=== PATIENT | female | born 1955 | race African-American/Black ===

== ENCOUNTER 2017-05-31 15:21 | Inpatient (IN) | payer OTHER ==
[2017-05-31 18:24] VITALS: BMI 26.6
--- NOTE | 2017-05-31 19:55 | HP ---
CIWA Score - CIWA Score Nausea/Vomitin-Mild Nausea/No Vomiting Muscle Tremors: 4-Moderate,w/Arms Extend Anxiety: 4-Mod. Anxious/Guarded Agitation: 4-Moderately Restless Paroxysmal Sweats: 1-Minimal Palms Moist Orientation: 0-Oriented Tacttile Disturbances: 0-None Auditory Disturbances: 0-None Visual Disturbances: 0-None Headache: 0-None Present CIWA-Ar Total Score: 14 Admission ROS BHS - HPI Chief Complaint: WITHDRAWAL SX Allergies/Adverse Reactions: Allergies Allergy/AdvReac Type Severity Reaction Status Date / Time No Known Allergies Allergy Verified 05/31/17 18:54 History of Present Illness: 61 YEAS OLD FEMALE WITH LONG HISTORY OF ALCOHOL MARIJUANA NICOTINE DEPENDENCE, HAS DIABETES II AND DEPRESSION IS ADMITTED TO DETOX Exam Limitations: No Limitations - Ebola screening Have you traveled outside of the country in the last 21 days: No Have you had contact with anyone from an Ebola affected area: No Have you been sick,other than usual withdrawal symptoms: No Do you have a fever: No - Review of Systems Constitutional: Changes in sleep, Weight Stable EENT: reports: Dental Problems (UPPER TEETH MISSING) Respiratory: reports: SOB with Exertion, Productive cough (WHITE) Cardiac: reports: No Symptoms Reported GI: reports: Nausea, Poor Fluid Intake, Abdominal cramping : reports: No Symptoms Reported Musculoskeletal: reports: Back Pain, Joint Pain (LEFT FOOT) Integumentary: reports: Dryness Neuro: reports: Tremors Endocrine: reports: No Symptoms Reported Hematology: reports: No Symptoms Reported Psychiatric: reports: Judgement Intact, Orientated x3, Anxious, Depressed Other Systems: Reviewed and Negative Patient History - Patient Medical History Hx Anemia: No Hx Asthma: No Hx Chronic Obstructive Pulmonary Disease (COPD): Yes Hx Cancer: No Hx Cardiac Disorders: Yes Hx Congestive Heart Failure: No Hx Hypertension: Yes (on meds) Hx Hypercholesterolemia: Yes Hx Pacemaker: No HX Cerebrovascular Accident: Yes (2011 LEFT LEG) Hx Seizures: No Hx Dementia: No Hx Diabetes: Yes Hx Gastrointestinal Disorders: No Hx Liver Disease: No Hx Genitourinary Disorders: No Hx Sexually Transmitted Disorders: No Hx Renal Disease (ESRD): No Hx Thyroid Disease: No Hx Human Immunodeficiency Virus (HIV): No Hx Hepatitis C: Yes Hx Depression: Yes Hx Suicide Attempt: No Hx Bipolar Disorder: No Hx Schizophrenia: No - Patient Surgical History Past Surgical History: No Hx Neurologic Surgery: No Hx Cataract Extraction: No Hx Cardiac Surgery: No Hx Lung Surgery: No Hx Breast Surgery: No Hx Breast Biopsy: No Hx Abdominal Surgery: No Hx Appendectomy: No Hx Cholecystectomy: No Hx Genitourinary Surgery: No Hx Section: No Hx Orthopedic Surgery: No Hx Hysterectomy: No Other Surgical History: s/p stent insertion L leg.2012 Anesthesia Reaction: No - PPD History Previous Implant?: Yes Documented Results: Negative w/proof Implanted On Prior [facility] Admission?: Yes Date: 11/27/14 PPD to be Administered?: Yes - Reproductive History Patient is a Female of Child Bearing Age (11 -55 yrs old): No Last Menstrual Period: 03/27/06 Patient : No - Smoking Cessation Smoking history: Current every day smoker Have you smoked in the past 12 months: Yes Aproximately how many cigarettes per day: 8 Cigars Per Day: 0 Hx Chewing Tobacco Use: No Initiated information on smoking cessation: Yes 'Breaking Loose' booklet given: 05/31/17 - Substance & Tx. History Hx Alcohol Use: Yes Hx Substance Use: Yes Substance Use Type: Alcohol, Marijuana Hx Substance Use Treatment: Yes (2014 [facility] - Substances Abused Alcohol Route: Oral Frequency: Daily Amount used: 2 SIX PACKS/16OZ Age of first use: 50 Date of Last Use: 05/31/17 Family Disease History - Family Disease History Family Disease History: Diabetes: Brother, Sister (), [place]: Father ( alcohol/), Sister, Other: Mother (MS, etoh/), Sister Admission Physical Exam [facility] - Vital Signs Vital Signs: Vital Signs - 24 hr 05/31/17 18:21 Temperature 98.1 F Pulse Rate 93 H Respiratory 18 Rate Blood Pressure 113/70 - Physical General Appearance: Yes: Appropriately Dressed, Mild Distress, Alcohol on Breath , Tremorous, Irritable, Sweating, Anxious HEENTM: Yes: Hearing grossly Normal, Normal ENT Inspection, Normocephalic, Normal Voice Respiratory: Yes: Chest Non-Tender, Lungs Clear, Normal Breath Sounds, No Respiratory Distress, No Accessory Muscle Use Neck: Yes: Supple, Trachea in good position Breast: Yes: Breasts Symetrical Cardiology: Yes: Regular Rhythm, S1, S2, Tachycardia Abdominal: Yes: Non Tender, Soft, Increased Bowel Sounds Genitourinary: Yes: Within Normal Limits Back: Yes: Normal Inspection Musculoskeletal: Yes: full range of Motion, Gait Steady Extremities: Yes: Normal Inspection, Normal Range of Motion, Non-Tender, Tremors Neurological: Yes: Fully Oriented, Alert, Motor Strength 5/5, Normal Response, Depressed Affect Integumentary: Yes: Warm Lymphatic: Yes: Within Normal Limits - Diagnostic (1) COPD (chronic obstructive pulmonary disease) Current Visit: Yes Status: Chronic Qualifiers: COPD type: emphysema Emphysema type: unilateral Qualified Code(s ): J43.0 - Unilateral pulmonary emphysema [MacLeod's syndrome] Comment: on meds, sees primary (2) Hypertension Current Visit: Yes Status: Chronic Qualifiers: Hypertension type: essential hypertension Qualified Code(s): I10 - Essential (primary) hypertension Comment: on meds, sees primary (3) Nicotine dependence Current Visit: Yes Status: Acute Qualifiers: Nicotine product type: cigarettes Substance use status: in withdrawal Qualified Code(s): F17.213 - Nicotine dependence, cigarettes, with withdrawal Comment: counseled cessation - has inhaler but did not like, has patches - not ready to try (4) PVD (peripheral vascular disease) Current Visit: Yes Status: Resolved Comment: has stent - saw vascular 2/5 and has another test to do end of month - states LLE feels better (5) Alcohol dependence with uncomplicated withdrawal Current Visit: Yes Status: Acute (6) Depression Current Visit: Yes Status: Suspected Qualifiers: Depression Type: dysthymia Qualified Code(s): F34.1 - Dysthymic disorder (7) Diabetes mellitus type II, controlled Current Visit: Yes Status: Chronic Qualifiers: Diabetes mellitus complication status: with neurologic complications Diabetes mellitus complication detail: with mononeuropathy Diabetes mellitus senior living insulin use: without adjunct faculty for medical terminology use Qualified Code(s): E11.41 - Type 2 diabetes mellitus with diabetic mononeuropathy (8) Use of cane as ambulatory aid Current Visit: Yes Status: Chronic (9) Status post stroke Current Visit: Yes Status: Chronic Comment: LEFT LEG WEAKNESS (10) Hepatitis C carrier Current Visit: Yes Status: Resolved Cleared for Admission BHS - Detox or Rehab BHS Level of Care: Medically Managed Detox Regimen/Protocol: Librium BHS Breath Alcohol Content Breath Alcohol Content: 0.020 Urine Pregancy Test - Result Urine Test Results: Negative- NO Line Present Urine Drug Screen - Results Drug Screen Negative: No Urine Drug Screen Results: THC-Marijuana
[2017-05-31] MEDS ORDERED: MAG HYDROX/AL HYDROX/SIMETH 30 ML UNIT-DOSE CUP PO PRN (20:04)
[2017-05-31] MEDS ORDERED: ACETAMINOPHEN 325 MG TABLET (FP) PO PRN (20:04)
[2017-05-31] MEDS ORDERED: guaiFENesin/D-METHORPHAN HB 10 ML UNIT-DOSE CUPS PO PRN (20:04)
[2017-05-31] MEDS ORDERED: diphenhydrAMINE HCL 50 MG CAPSULE PO PRN (20:04)
[2017-05-31] MEDS ORDERED: MENTHOL/PHENOL 1 EACH UD MM PRN (20:04)
[2017-05-31] MEDS ORDERED: chlordiazePOXIDE HCL 25 MG CAPSULE PO PRN (20:04)
[2017-05-31] MEDS ORDERED: MAGNESIUM CITRATE 300 ML BOTTLE PO PRN (20:04)
[2017-05-31] MEDS ORDERED: P-EPHED 60MG/TRIPROLIDI 2.5MG TABLET PO PRN (20:04)
[2017-05-31] MEDS ORDERED: LOPERAMIDE HCL 2 MG CAPSULE PO PRN (20:04)
[2017-05-31] MEDS ORDERED: chlordiazePOXIDE HCL 25 MG CAPSULE PO ONE (20:04)
[2017-05-31] MEDS ORDERED: MAGNESIUM HYDROX 2400MG/30ML ORAL SUSPENSION 30 ML CUP PO PRN (20:04)
[2017-05-31] MEDS ORDERED: ALBUTEROL SO4 18 GM HFA INHALER IH PRN (20:36)
[2017-05-31] MEDS: BUDESONIDE/FORMETEROL FUMARATE 80/4.5 mcg INHALER IH SCH (22:10)
[2017-05-31] MEDS: THIAMINE HCL 100 MG TABLET (FP) PO SCH (22:11)
[2017-05-31] MEDS: chlordiazePOXIDE HCL 25 MG CAPSULE PO SCH (22:11)
[2017-05-31] MEDS: ATORVASTATIN CA 40 MG TABLET (FP) PO SCH (22:11)
[2017-05-31] MEDS: AMMONIUM LACTATE 12% LOTION 225 GM BOTTLE TP SCH (22:11)
[2017-05-31] MEDS: INSULIN SLIDING SCALE (NOVOLOG) 1 VIAL SQ SCH (22:12)
[2017-05-31 23:40] LABS: URINE APPEARANCE SLCLOUDY; URINE BILIRUBIN NEGATIVE (NEGATIVE); URINE BLOOD 1+ (NEGATIVE); URINE COLOR YELLOW; URINE GLUCOSE (UA) NEGATIVE (NEGATIVE); URINE KETONE NEGATIVE (NEGATIVE); URINE LEUK ESTERASE NEGATIVE (NEGATIVE); URINE NITRITE POSITIVE (NEGATIVE); URINE PROTEIN NEGATIVE (NEGATIVE); URINE UROBILINOGEN NEGATIVE mg/dL (0.2-1.0)
[2017-06-01 00:02] LABS: GRANULAR CASTS 1 /lpf; URINE BACTERIA RARE /hpf (NONE SEEN); URINE HYALINE CAST 6 /lpf; URINE MUCUS RARE; URINE RBC <1 /hpf (0-3); URINE WBC 2 /hpf (3-5)
[2017-06-01] MEDS: chlordiazePOXIDE HCL 25 MG CAPSULE PO SCH ×4 (06:01→22:25)
[2017-06-01] MEDS: NICOTINE POLACRILEX 2 MG GUM BC PRN ×3 (06:03→17:13)
[2017-06-01] MEDS: INSULIN SLIDING SCALE (NOVOLOG) 1 VIAL SQ SCH ×4 (08:10→23:43)
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
--- NOTE | 2017-06-01 08:57 | PN ---
S CIWA - CIWA Score Nausea/Vomitin Muscle Tremors: 4-Moderate,w/Arms Extend Anxiety: 4-Mod. Anxious/Guarded Agitation: 4-Moderately Restless Paroxysmal Sweats: 3 Orientation: 0-Oriented Tacttile Disturbances: 1-Very Mild Itch/Numbness Auditory Disturbances: 0-None Visual Disturbances: 0-None Headache: 1-Very Mild CIWA-Ar Total Score: 20 BHS Progress Note (SOAP) Subjective: nausea, sweats, interrupted sleep, anxiety, tremors, patient may have cane for ambualtion order placed at nurses request Objective: 06/01/17 08:56 Vital Signs - 8 hr 06/01/17 06/01/17 03:30 07:14 Temperature 98.1 F Pulse Rate 88 Respiratory 18 18 Rate Blood Pressure 132/77 Laboratory Tests 05/31/17 05/31/17 05/31/17 15:44 18:58 21:45 POC Glucometer 135 129 Urine Color Yellow Urine Appearance Slcloudy Urine pH 5.0 Urine Protein Negative Urine Glucose (UA) Negative Urine Ketones Negative Urine Blood 1+ H Urine Nitrite Positive Urine Bilirubin Negative Urine Urobilinogen Negative Urine RBC <1 Urine WBC 2 Ur Epithelial Cells Rare Urine Bacteria Rare Hyaline Casts 6 Granular Casts 1 Urine Mucus Rare 06/01/17 06:00 POC Glucometer 117 Urine Color Urine Appearance Urine pH Urine Protein Urine Glucose (UA) Urine Ketones Urine Blood Urine Nitrite Urine Bilirubin Urine Urobilinogen Urine RBC Urine WBC Ur Epithelial Cells Urine Bacteria Hyaline Casts Granular Casts Urine Mucus labs stiull pending Assessment: 06/01/17 08:57 withdrawal sx Plan: cont detox.
--- NOTE | 2017-06-01 09:22 | EKG ---
Test Reason : Blood Pressure : / mmHG Vent. Rate : 073 BPM Atrial Rate : 073 BPM P-R Int : 236 ms QRS Dur : 094 ms QT Int : 406 ms P-R-T Axes : 074 -20 063 degrees QTc Int : 447 ms SINUS RHYTHM WITH 1ST DEGREE A-V BLOCK POSSIBLE LEFT ATRIAL ENLARGEMENT INCOMPLETE RIGHT BUNDLE BRANCH BLOCK NO PREVIOUS ECGS AVAILABLE Confirmed by PARUL MOYER MD ([id number]) on 06/01/2017 9:21:40 AM Referred By: Confirmed By:PARUL MOYER MD
[2017-06-01] MEDS ORDERED: ERGOCALCIFEROL (VITAMIN D2) 50,000 UNIT CAPSULE (FP) PO SCH (10:00)
[2017-06-01 10:24] LABS: MCH 30.7 pg (25.7-33.7); MEAN CELL VOLUME 90.5 fl (80-96); MEAN PLT VOLUME 9.3 fl (7.5-11.1); PLATELET COUNT 265 K/MM3 (134-434); RDW 13.7 % (11.6-15.6); WHITE BLOOD COUNT 6.7 K/mm3 (4.0-10.0)
[2017-06-01] MEDS: CARVEDILOL 12.5 MG TABLET (FP) PO SCH (10:31)
[2017-06-01] MEDS: CLOPIDOGREL BISULFATE 75 MG TABLET (FP) PO SCH (10:33)
[2017-06-01] MEDS: LOSARTAN POTASSIUM 50 MG TABLET (FP) PO SCH (10:33)
[2017-06-01] MEDS: PRENATAL VITAMINS W/ FOLIC ACID TABLET (FP) PO SCH (10:33)
[2017-06-01] MEDS: NICOTINE 14 MG/24 HOURS TOPICAL PATCH TD SCH (10:34)
[2017-06-01] MEDS: BUDESONIDE/FORMETEROL FUMARATE 80/4.5 mcg INHALER IH SCH ×2 (10:34→23:43)
[2017-06-01 11:42] LABS: ALBUMIN 3.5 g/dl (3.4-5.0); ALK PHOS 67 U/L (45-117); ANION GAP 10 (8-16); BILIRUBIN,TOTAL 0.4 mg/dL (0.2-1.0); CO2 28 mmol/L (21-32); CREATININE 0.7 mg/dL (0.55-1.02); GLUCOSE,RANDOM 98 mg/dL (74-106); SGOT/AST 12 U/L (15-37); SGPT/ALT 18 U/L (12-78); TOT PROT 7.6 g/dl (6.4-8.2)
[2017-06-01] MEDS: AMMONIUM LACTATE 12% LOTION 225 GM BOTTLE TP SCH ×2 (11:48→22:25)
[2017-06-01] MEDS: ZOLPIDEM TARTRATE 10 MG TABLET (PARK CARE ONLY) PO PRN (22:25)
[2017-06-01] MEDS: THIAMINE HCL 100 MG TABLET (FP) PO SCH (22:25)
[2017-06-01] MEDS: ATORVASTATIN CA 40 MG TABLET (FP) PO SCH (22:25)
[2017-06-02] MEDS: chlordiazePOXIDE HCL 25 MG CAPSULE PO SCH ×3 (05:53→16:59)
[2017-06-02] MEDS: INSULIN SLIDING SCALE (NOVOLOG) 1 VIAL SQ SCH ×4 (07:52→21:33)
[2017-06-02] MEDS: BUDESONIDE/FORMETEROL FUMARATE 80/4.5 mcg INHALER IH SCH ×2 (10:36→21:55)
[2017-06-02] MEDS: CARVEDILOL 12.5 MG TABLET (FP) PO SCH (10:37)
[2017-06-02] MEDS: NICOTINE 14 MG/24 HOURS TOPICAL PATCH TD SCH (10:37)
[2017-06-02] MEDS: LOSARTAN POTASSIUM 50 MG TABLET (FP) PO SCH (10:37)
[2017-06-02] MEDS: CLOPIDOGREL BISULFATE 75 MG TABLET (FP) PO SCH (10:37)
[2017-06-02] MEDS: PRENATAL VITAMINS W/ FOLIC ACID TABLET (FP) PO SCH (10:37)
[2017-06-02] MEDS: AMMONIUM LACTATE 12% LOTION 225 GM BOTTLE TP SCH ×2 (10:38→22:02)
--- NOTE | 2017-06-02 14:09 | PN ---
S CIWA - CIWA Score Nausea/Vomitin Muscle Tremors: 3 Anxiety: 3 Agitation: 3 Paroxysmal Sweats: 1-Minimal Palms Moist Orientation: 0-Oriented Tacttile Disturbances: 1-Very Mild Itch/Numbness Auditory Disturbances: 1-Very Mild Visual Disturbances: 1-Very Mild Sensitivity Headache: 2-Mild CIWA-Ar Total Score: 18 BHS Progress Note (SOAP) Subjective: alert,irritable,anxious,interrupted sleep,tremor,pain in the body,hsitory of rheumatiod arthritis on plaquenil 200 mgs po daily Objective: 06/02/17 14:06 Vital Signs Temperature 98.2 F 06/02/17 11:08 Pulse Rate 81 06/02/17 11:08 Respiratory Rate 18 06/02/17 11:08 Blood Pressure 135/70 06/02/17 11:08 O2 Sat by Pulse Oximetry (%) ekg nsr with 1st degree av block 73/min no chest pain,no sob,no dizziness Laboratory Last Values WBC 6.7 K/mm3 (4.0-10.0) 06/01/17 07:40 RBC 4.24 M/mm3 (3.60-5.2) 06/01/17 07:40 Hgb 13.0 GM/dL (10.7-15.3) 06/01/17 07:40 Hct 38.3 % (32.4-45.2) 06/01/17 07:40 MCV 90.5 fl (80-96) 06/01/17 07:40 MCH 30.7 pg (25.7-33.7) 06/01/17 07:40 MCHC 34.0 g/dl (32.0-36.0) 06/01/17 07:40 RDW 13.7 % (11.6-15.6) 06/01/17 07:40 Plt Count 265 K/MM3 (134-434) 06/01/17 07:40 MPV 9.3 fl (7.5-11.1) 06/01/17 07:40 Sodium 136 mmol/L (136-145) 06/01/17 07:40 Potassium 3.6 mmol/L (3.5-5.1) 06/01/17 07:40 Chloride 98 mmol/L (98-107) 06/01/17 07:40 Carbon Dioxide 28 mmol/L (21-32) 06/01/17 07:40 Anion Gap 10 (8-16) 06/01/17 07:40 BUN 11 mg/dL (7-18) 06/01/17 07:40 Creatinine 0.7 mg/dL (0.55-1.02) 06/01/17 07:40 Creat Clearance w eGFR > 60 (>60) 06/01/17 07:40 POC Glucometer 122 UNITS (()) 06/02/17 11:16 Random Glucose 98 mg/dL (74-106) 06/01/17 07:40 Calcium 10.0 mg/dL (8.5-10.1) 06/01/17 07:40 Total Bilirubin 0.4 mg/dL (0.2-1.0) D 06/01/17 07:40 AST 12 U/L (15-37) L 06/01/17 07:40 ALT 18 U/L (12-78) D 06/01/17 07:40 Alkaline Phosphatase 67 U/L (45-117) 06/01/17 07:40 Total Protein 7.6 g/dl (6.4-8.2) 06/01/17 07:40 Albumin 3.5 g/dl (3.4-5.0) 06/01/17 07:40 Urine Color Yellow 05/31/17 15:44 Urine Appearance Slcloudy 05/31/17 15:44 Urine pH 5.0 (5.0-8.0) 05/31/17 15:44 Ur Specific Mcwilliams 1.025 (1.005-1.025) 05/31/17 15:44 Urine Protein Negative (NEGATIVE) 05/31/17 15:44 Urine Glucose (UA) Negative (NEGATIVE) 05/31/17 15:44 Urine Ketones Negative (NEGATIVE) 05/31/17 15:44 Urine Blood 1+ (NEGATIVE) H 05/31/17 15:44 Urine Nitrite Positive (NEGATIVE) 05/31/17 15:44 Urine Bilirubin Negative (NEGATIVE) 05/31/17 15:44 Urine Urobilinogen Negative mg/dL (0.2-1.0) 05/31/17 15:44 Urine RBC <1 /hpf (0-3) 05/31/17 15:44 Urine WBC 2 /hpf (3-5) 05/31/17 15:44 Ur Epithelial Cells Rare /hpf (FEW) 05/31/17 15:44 Urine Bacteria Rare /hpf (NONE SEEN) 05/31/17 15:44 Hyaline Casts 6 /lpf 05/31/17 15:44 Granular Casts 1 /lpf 05/31/17 15:44 Urine Mucus Rare 05/31/17 15:44 RPR Titer Nonreactive (NONREACTIVE) 06/01/17 07:40 06/02/17 14:08 Assessment: 06/02/17 14:08 withdrawal symptom Plan: continue detox,bgm monitoring
[2017-06-02] MEDS: HYDROCHLOROTHIAZIDE 25 MG TABLET (FP) PO SCH (14:38)
[2017-06-02] MEDS: HYDROXYCHLOROQUINE SO4 200 MG TABLET (FP) PO SCH (14:38)
[2017-06-02] MEDS: ATORVASTATIN CA 40 MG TABLET (FP) PO SCH (21:56)
[2017-06-02] MEDS: ZOLPIDEM TARTRATE 10 MG TABLET (PARK CARE ONLY) PO PRN (21:56)
[2017-06-02] MEDS: THIAMINE HCL 100 MG TABLET (FP) PO SCH (21:56)
[2017-06-02] MEDS: IBUPROFEN 400 MG TABLET (FP) PO PRN (21:57)
[2017-06-02] MEDS: hydrOXYzine PAMOATE 50 MG CAPSULE (FP) PO PRN (22:00)
[2017-06-02] MEDS: chlordiazePOXIDE 5 MG CAPSULE PO SCH (22:01)
--- NOTE | 2017-06-03 05:08 | PN ---
S Progress Note Note: ASKED TO SEE PT FOR AN UNWITNESSED FALL. CLIENT REPORT LOSING HER BALANCE WHILE GOING TO THE BATHROOM. NURSE REPORTS FINDING HER LYING ON HER LEFT SIDE. DENIES ANY HEAD TRAUMA, LOC, C.P., SOB SEEN LYING IN BED ALERT NAD NO VISIBLE INJURY EXTREMITIES FROM X4 WITHOUT LIMITATION Vital Signs 06/03/17 06/03/17 06/03/17 00:30 03:30 05:17 Temperature 97.4 F L Pulse Rate 67 Respiratory 18 18 18 Rate Blood Pressure 166/79 06/03/17 06:00 Temperature 98.1 F Pulse Rate 61 Respiratory 18 Rate Blood Pressure 129/74 BGM 93 S/P UNWITNESSED FALL FALL PROTOCOL 2 FALL PRECAUTION MOTRIN/TYLENOL FOR PAIN CLIENT DECLINES XRAY OF L HIP AT THIS TIME
[2017-06-03] MEDS: chlordiazePOXIDE 5 MG CAPSULE PO SCH ×3 (06:49→17:36)
[2017-06-03] MEDS: IBUPROFEN 400 MG TABLET (FP) PO PRN (07:50)
[2017-06-03] MEDS: INSULIN SLIDING SCALE (NOVOLOG) 1 VIAL SQ SCH ×4 (07:56→21:16)
--- NOTE | 2017-06-03 10:17 | PN ---
S Progress Note (SOAP) Subjective: ALERT,IRRITABLE,INTERRUPTED SLEEP Objective: 06/03/17 10:16 Vital Signs Temperature 98.6 F 06/03/17 10:00 Pulse Rate 75 06/03/17 10:00 Respiratory Rate 18 06/03/17 10:00 Blood Pressure 136/70 06/03/17 10:00 O2 Sat by Pulse Oximetry (%) Assessment: 06/03/17 10:16 WITHDRAWAL SYMPTOM Plan: CONTINUE DETOX,DISCHARGE IN AM
[2017-06-03] MEDS: BUDESONIDE/FORMETEROL FUMARATE 80/4.5 mcg INHALER IH SCH ×2 (11:36→21:26)
[2017-06-03] MEDS: PRENATAL VITAMINS W/ FOLIC ACID TABLET (FP) PO SCH (11:36)
[2017-06-03] MEDS: CLOPIDOGREL BISULFATE 75 MG TABLET (FP) PO SCH (11:36)
[2017-06-03] MEDS: HYDROCHLOROTHIAZIDE 25 MG TABLET (FP) PO SCH (11:37)
[2017-06-03] MEDS: CARVEDILOL 12.5 MG TABLET (FP) PO SCH (11:37)
[2017-06-03] MEDS: LOSARTAN POTASSIUM 50 MG TABLET (FP) PO SCH (11:37)
[2017-06-03] MEDS ORDERED: INSULIN (NOVOLOG) ASPART 100 UNITS/ML 10ML VIAL ONE (11:50)
[2017-06-03] MEDS: AMMONIUM LACTATE 12% LOTION 225 GM BOTTLE TP SCH ×2 (11:58→21:17)
[2017-06-03] MEDS: NICOTINE 14 MG/24 HOURS TOPICAL PATCH TD SCH (12:01)
[2017-06-03] MEDS: HYDROXYCHLOROQUINE SO4 200 MG TABLET (FP) PO SCH (12:01)
[2017-06-03] MEDS: THIAMINE HCL 100 MG TABLET (FP) PO SCH (21:15)
[2017-06-03] MEDS: ATORVASTATIN CA 40 MG TABLET (FP) PO SCH (21:16)
[2017-06-03] MEDS: ZOLPIDEM TARTRATE 10 MG TABLET (PARK CARE ONLY) PO PRN (21:17)
[2017-06-03] MEDS: hydrOXYzine PAMOATE 50 MG CAPSULE (FP) PO PRN (21:19)
[2017-06-03] MEDS: chlordiazePOXIDE HCL 10 MG CAPSULE PO SCH (21:59)
[2017-06-04] MEDS: chlordiazePOXIDE HCL 10 MG CAPSULE PO SCH (05:38)
[2017-06-04] MEDS: INSULIN SLIDING SCALE (NOVOLOG) 1 VIAL SQ SCH (07:33)
--- NOTE | 2017-06-04 09:01 | DS ---
[facility] Detox Discharge Summary Admission Date: 05/31/17 Discharge Date: 06/04/17 - History Present History: Alcohol Dependence, Cannabis Dependence - Physical Exam Results Vital Signs: Vital Signs Temperature 97.3 F L 06/04/17 06:03 Pulse Rate 69 06/04/17 06:03 Respiratory Rate 18 06/04/17 06:03 Blood Pressure 106/58 06/04/17 06:03 O2 Sat by Pulse Oximetry (%) - Treatment Hospital Course: Detox Protocol Followed, Detoxed Safely, Responded well, Discharged Condition Good, Rehab Referral Accepted - Medication Discharge Medications: Ambulatory Orders Chlorthalidone 25 mg PO DAILY 07/07/14 Metformin HCl 850 mg PO DAILY 07/07/14 Gabapentin [Neurontin] 600 mg PO TID 11/25/14 Atorvastatin Ca [Lipitor] 40 mg PO HS #30 tablet 12/14/14 Carvedilol 12.5 mg PO BID #60 tablet 12/14/14 Clopidogrel Bisulfate [Plavix -] 75 mg PO DAILY #30 tablet 12/14/14 Hydroxyzine Pamoate [Vistaril -] 50 mg PO HS PRN #30 capsule 12/15/14 Ergocalciferol [Drisdol -] 50,000 unit PO Q7D@1000 02/17/15 Quetiapine Fumarate [Seroquel -] 50 mg PO HS 02/17/15 - Diagnosis (1) Alcohol dependence with uncomplicated withdrawal Current Visit: Yes Status: Chronic (2) COPD (chronic obstructive pulmonary disease) Current Visit: Yes Status: Chronic Qualifiers: COPD type: emphysema Emphysema type: unilateral Qualified Code(s ): J43.0 - Unilateral pulmonary emphysema [MacLeod's syndrome] (3) Diabetes mellitus type II, controlled Current Visit: Yes Status: Chronic Qualifiers: Diabetes mellitus complication status: with neurologic complications Diabetes mellitus complication detail: with mononeuropathy Diabetes mellitus roasterman insulin use: without roasterman use Qualified Code(s): E11.41 - Type 2 diabetes mellitus with diabetic mononeuropathy; Z79.4 - long term care phlebotomist (current) use of insulin (4) Hypertension Current Visit: Yes Status: Chronic Qualifiers: Hypertension type: essential hypertension Qualified Code(s): I10 - Essential (primary) hypertension (5) Nicotine dependence Current Visit: Yes Status: Chronic Qualifiers: Nicotine product type: cigarettes Substance use status: uncomplicated Qualified Code(s): F17.210 - Nicotine dependence, cigarettes, uncomplicated (6) Rheumatoid arthritis Current Visit: Yes Status: Chronic Qualifiers: Rheumatoid arthritis location: unspecified site (7) Schizoaffective disorder Current Visit: Yes Status: Chronic (8) Status post stroke Current Visit: No Status: Resolved (9) Use of cane as ambulatory aid Current Visit: Yes Status: Chronic (10) Depression Current Visit: Yes Status: Suspected Qualifiers: Depression Type: dysthymia Qualified Code(s): F34.1 - Dysthymic disorder (11) Hepatitis C carrier Current Visit: Yes Status: Resolved (12) PVD (peripheral vascular disease) Current Visit: Yes Status: Resolved (13) Cannabis abuse Current Visit: No Status: Chronic (14) Chronic use of opiate for therapeutic purpose Current Visit: No Status: Chronic (15) Left hip pain Current Visit: No Status: Chronic (16) Low back pain Current Visit: No Status: Chronic (17) Schizophrenia, paranoid type Current Visit: No Status: Chronic - AMA Did Patient Leave Against Medical Advice: No
[2017-06-04] MEDS: LOSARTAN POTASSIUM 50 MG TABLET (FP) PO SCH (09:17)
[2017-06-04] MEDS: PRENATAL VITAMINS W/ FOLIC ACID TABLET (FP) PO SCH (09:17)
[2017-06-04] MEDS: CLOPIDOGREL BISULFATE 75 MG TABLET (FP) PO SCH (09:17)
[2017-06-04] MEDS: AMMONIUM LACTATE 12% LOTION 225 GM BOTTLE TP SCH (09:17)
[2017-06-04] MEDS: CARVEDILOL 12.5 MG TABLET (FP) PO SCH (09:17)
[2017-06-04] MEDS: BUDESONIDE/FORMETEROL FUMARATE 80/4.5 mcg INHALER IH SCH (09:19)
[2017-06-04] MEDS: HYDROXYCHLOROQUINE SO4 200 MG TABLET (FP) PO SCH (09:19)
[2017-06-04] MEDS: NICOTINE 14 MG/24 HOURS TOPICAL PATCH TD SCH (09:23)
[2017-06-04] MEDS: HYDROCHLOROTHIAZIDE 25 MG TABLET (FP) PO SCH (09:52)
[2017-06-04] MEDS ORDERED: ERGOCALCIFEROL (VITAMIN D2) 50,000 UNIT CAPSULE (FP) PO SCH (10:00)
[2017-06-04 10:40] VITALS: BP 100/89; PULSE 79; TEMP 98.1
== END 2017-06-04 09:55 | disposition home or self-care (01) | DRG 775 ==
LOC: YASAS 15:21 → Y6N 19:21
PROVIDERS: ADMIT Internal Medicine; ATTEND Internal Medicine
PROC: HZ2ZZZZ Detoxification Services for Substance Abuse Treatment (ICD-10-PCS; principal; 2017-05-31)
DX: F10.230 Alcohol dependence with withdrawal, uncomplicated (principal); F12.20 Cannabis dependence, uncomplicated; F17.210 Nicotine dependence, cigarettes, uncomplicated; F25.9 Schizoaffective disorder, unspecified; F34.1 Dysthymic disorder; F20.0 Paranoid schizophrenia; J43.0 Unilateral pulmonary emphysema [MacLeod's syndrome]; E78.5 Hyperlipidemia, unspecified; E11.41 Type 2 diabetes mellitus with diabetic mononeuropathy; I10 Essential (primary) hypertension; M06.9 Rheumatoid arthritis, unspecified; I44.0 Atrioventricular block, first degree; Z86.73 Personal history of transient ischemic attack (TIA), and cerebral infarction without residual deficits; R26.2 Difficulty in walking, not elsewhere classified; Z99.89 Dependence on other enabling machines and devices; B18.2 Chronic viral hepatitis C; I73.9 Peripheral vascular disease, unspecified; Z79.4 Long term (current) use of insulin; R00.0 Tachycardia, unspecified; M54.5 Low back pain; M25.552 Pain in left hip; Z79.84 Long term (current) use of oral hypoglycemic drugs; W18.39XA Other fall on same level, initial encounter; Y93.89 Activity, other specified; Y92.230 Patient room in hospital as the place of occurrence of the external cause
CPT/HCPCS: 36415; 80053; 81003; 81015; 85027; 86593; 93005; 93010

== ENCOUNTER 2017-12-07 11:18 | Inpatient (IN) | payer OTHER ==
[2017-12-07 11:29] VITALS: BMI 24.7
--- NOTE | 2017-12-07 14:55 | HP ---
CIWA Score - CIWA Score Nausea/Vomitin Muscle Tremors: 2 Anxiety: 2 Agitation: 2 Paroxysmal Sweats: 3 Orientation: 0-Oriented Tacttile Disturbances: 1-Very Mild Itch/Numbness Auditory Disturbances: 0-None Visual Disturbances: 0-None Headache: 0-None Present CIWA-Ar Total Score: 12 Admission ROS BHS - HPI Chief Complaint: I need to stop drinking alcohol. Allergies/Adverse Reactions: Allergies Allergy/AdvReac Type Severity Reaction Status Date / Time No Known Allergies Allergy Verified 12/07/17 14:15 History of Present Illness: H/o chronic alccoholism since age 21, seeking detox. Exam Limitations: No Limitations - Ebola screening Have you traveled outside of the country in the last 21 days: No Have you had contact with anyone from an Ebola affected area: No Have you been sick,other than usual withdrawal symptoms: No - Review of Systems Constitutional: Loss of Appetite, Malaise, Night Sweats, Changes in sleep, Unintentional Wgt. Loss (30 lbs x 1 year) EENT: reports: Blurred Vision, Dental Problems (teeth i n poor repair , multiple missing teeth) Respiratory: reports: Cough Cardiac: reports: Chest Tightness GI: reports: Diarrhea, Poor Appetite : reports: No Symptoms Reported Musculoskeletal: reports: No Symptoms Reported Integumentary: reports: Dryness Neuro: reports: Seizure, Tremors Endocrine: reports: Increased Urine Hematology: reports: No Symptoms Reported Psychiatric: reports: No Sypmtoms Reported Other Systems: Reviewed and Negative Patient History - Patient Medical History Hx Anemia: No Hx Asthma: No Hx Chronic Obstructive Pulmonary Disease (COPD): Yes Hx Cancer: No Hx Cardiac Disorders: No Hx Congestive Heart Failure: No Hx Hypertension: Yes (on meds) Hx Hypercholesterolemia: Yes Hx Pacemaker: No HX Cerebrovascular Accident: No Hx Seizures: Yes (at age 21 from withdrawal X1) Hx Dementia: No Hx Diabetes: Yes Hx Gastrointestinal Disorders: No Hx Liver Disease: No Hx Genitourinary Disorders: No Hx Sexually Transmitted Disorders: No Hx Renal Disease (ESRD): No Hx Thyroid Disease: No Hx Human Immunodeficiency Virus (HIV): No Hx Hepatitis C: Yes Hx Depression: Yes Hx Suicide Attempt: No Hx Bipolar Disorder: No Hx Schizophrenia: No Other Medical History: PVD - stent left leg - 07/30/13 - Patient Surgical History Past Surgical History: No Hx Neurologic Surgery: No Hx Cataract Extraction: No Hx Cardiac Surgery: No Hx Lung Surgery: No Hx Breast Surgery: No Hx Breast Biopsy: No Hx Abdominal Surgery: No Hx Appendectomy: No Hx Cholecystectomy: No Hx Genitourinary Surgery: No Hx Section: No Hx Orthopedic Surgery: No Hx Hysterectomy: No Other Surgical History: s/p stent insertion L leg.2012 Anesthesia Reaction: No - PPD History Previous Implant?: Yes Documented Results: Negative w/proof Implanted On Prior [facility] Admission?: Yes Date: 06/02/17 Results: 0 mm - Reproductive History Last Menstrual Period: 03/27/06 Patient : No - Smoking Cessation Smoking history: Current every day smoker Have you smoked in the past 12 months: Yes Aproximately how many cigarettes per day: 10 Cigars Per Day: 0 Hx Chewing Tobacco Use: No Initiated information on smoking cessation: Yes 'Breaking Loose' booklet given: 12/07/17 - Substance & Tx. History Hx Alcohol Use: Yes Hx Substance Use: Yes Substance Use Type: Alcohol, Marijuana Hx Substance Use Treatment: Yes ( [facility] - Substances Abused Alcohol Route: Oral Frequency: Daily Amount used: 5 - 12 oz beer Age of first use: 24 Date of Last Use: 12/07/17 Marijuana/Hashish Route: Smoking Frequency: Daily Amount used: 1 joint Age of first use: 16 Date of Last Use: 12/07/17 Family Disease History - Family Disease History Family Disease History: Diabetes: Brother, Sister (), [place]: Father ( alcohol/), Sister, Other: Mother (MS, etoh/), Sister Admission Physical Exam S - Vital Signs Vital Signs: Vital Signs - 24 hr 12/07/17 11:27 Temperature 97.4 F L Pulse Rate 71 Respiratory 20 Rate Blood Pressure 144/92 62 y/o b f pt aox3 in nad ambulating and cooperative with exam. - Physical General Appearance: Yes: Disheveled HEENTM: Yes: EOMI, Hearing grossly Normal, Normocephalic, Muffled/Hoarse Voice, Other (tongue hyperpigmented macules) Respiratory: Yes: Chest Non-Tender, Lungs Clear, Normal Breath Sounds, No Respiratory Distress Neck: Yes: Supple, Trachea in good position Breast: Yes: Breast Exam Deferred Cardiology: Yes: Regular Rhythm, Regular Rate, S1, S2 Abdominal: Yes: Non Tender, Flat, Soft, Increased Bowel Sounds Genitourinary: Yes: Within Normal Limits Back: Yes: Decreased Range of Motion Musculoskeletal: Yes: Joint Stiffness, Muscle weakness Extremities: Yes: Within Normal Limits Neurological: Yes: business center representative II-XII NML intact, Fully Oriented, Alert Integumentary: Yes: Moist Lymphatic: Yes: Within Normal Limits - Diagnostic (1) PVD (peripheral vascular disease) Current Visit: Yes Status: Chronic (2) Alcohol dependence with uncomplicated withdrawal Current Visit: No Status: Chronic (3) Cannabis abuse Current Visit: No Status: Chronic Comment: counseled ongoing abstinence - disussed going to [facility] - she thinks attending [facility] will provide enough structure for her to stop - this will not begin until 11/08 - discussed AA meetings - has some transportation issues - states she has stopped smoking sep 29 (4) Left hip pain Current Visit: Yes Status: Chronic Comment: refer to [facility]o [facility] for eval and imaging - got injection which helped - to f/u with them (5) Low back pain Current Visit: Yes Status: Chronic Qualifiers: Chronicity: chronic Comment: stretches, topical, percocet for pain (6) Nicotine dependence Current Visit: Yes Status: Chronic Qualifiers: Nicotine product type: cigarettes Substance use status: uncomplicated Qualified Code(s): F17.210 - Nicotine dependence, cigarettes, uncomplicated Comment: counseled cessation - has inhaler but did not like, has patches - not ready to try (7) DM (diabetes mellitus) Current Visit: Yes Status: Acute Qualifiers: Diabetes mellitus type: type 2 (8) Neuropathy Current Visit: Yes Status: Acute Cleared for Admission [facility] - Detox or Rehab [facility] Level of Care: Medically Managed Detox Regimen/Protocol: Librium [facility] Breath Alcohol Content Breath Alcohol Content: 0.020 Urine Drug Screen - Results Drug Screen Negative: No Urine Drug Screen Results: THC-Marijuana
[2017-12-07] MEDS ORDERED: ACETAMINOPHEN 325 MG TABLET (FP) PO PRN (15:11)
[2017-12-07] MEDS ORDERED: hydrOXYzine PAMOATE 25 MG CAPSULE (FP) PO PRN (15:11)
[2017-12-07] MEDS ORDERED: chlordiazePOXIDE HCL 25 MG CAPSULE PO PRN (15:11)
[2017-12-07] MEDS ORDERED: P-EPHED 60MG/TRIPROLIDI 2.5MG TABLET PO PRN (15:11)
[2017-12-07] MEDS ORDERED: MAGNESIUM CITRATE 300 ML BOTTLE PO PRN (15:11)
[2017-12-07] MEDS ORDERED: MAGNESIUM HYDROX 2400MG/30ML ORAL SUSPENSION 30 ML CUP PO PRN (15:11)
[2017-12-07] MEDS ORDERED: MENTHOL/PHENOL 1 EACH UD MM PRN (15:11)
[2017-12-07] MEDS ORDERED: MAG HYDROX/AL HYDROX/SIMETH 30 ML UNIT-DOSE CUP PO PRN (15:11)
[2017-12-07] MEDS ORDERED: guaiFENesin/D-METHORPHAN HB 10 ML UNIT-DOSE CUPS PO PRN (15:11)
[2017-12-07] MEDS ORDERED: IBUPROFEN 400 MG TABLET (FP) PO PRN (15:11)
[2017-12-07] MEDS ORDERED: NICOTINE POLACRILEX 4 MG GUM BC PRN (15:11)
[2017-12-07] MEDS ORDERED: LOPERAMIDE HCL 2 MG CAPSULE PO PRN (15:11)
[2017-12-07] MEDS: chlordiazePOXIDE HCL 25 MG CAPSULE PO SCH ×2 (17:27→22:13)
[2017-12-07] MEDS ORDERED: MELATONIN 5 MG TABLETS PO PRN (22:00)
[2017-12-07] MEDS: THIAMINE HCL 100 MG TABLET (FP) PO SCH (22:13)
[2017-12-08 03:23] LABS: URINE APPEARANCE SLCLOUDY; URINE BILIRUBIN NEGATIVE (<2.0 mg/dL); URINE BLOOD NEGATIVE (NEGATIVE); URINE COLOR YELLOW; URINE GLUCOSE (UA) NEGATIVE (NEGATIVE); URINE KETONE NEGATIVE (NEGATIVE); URINE LEUK ESTERASE NEGATIVE (NEGATIVE); URINE NITRITE NEGATIVE (NEGATIVE); URINE PROTEIN NEGATIVE (NEGATIVE); URINE UROBILINOGEN NEGATIVE mg/dL (0.2-1.0)
[2017-12-08] MEDS: chlordiazePOXIDE HCL 25 MG CAPSULE PO SCH ×4 (05:13→22:13)
[2017-12-08] MEDS: NICOTINE 21 MG/24 HOURS TOPICAL PATCH TD SCH (10:17)
[2017-12-08] MEDS: PRENATAL VITAMINS W/ FOLIC ACID TABLET (FP) PO SCH (10:17)
[2017-12-08 11:17] LABS: HEMATOCRIT 38.8 % (32.4-45.2); MCH 31.3 pg (25.7-33.7); MCHC 33.6 g/dl (32.0-36.0); MEAN CELL VOLUME 93.1 fl (80-96); MEAN PLT VOLUME 9.8 fl (7.5-11.1); PLATELET COUNT 232 K/MM3 (134-434); RBC 4.17 M/mm3 (3.60-5.2); RDW 14.5 % (11.6-15.6); WHITE BLOOD COUNT 5.6 K/mm3 (4.0-10.0)
[2017-12-08 11:34] LABS: CHLORIDE 108 mmol/L (98-107); POTASSIUM 4.3 mmol/L (3.5-5.1); SODIUM 137 mmol/L (136-145)
[2017-12-08 11:43] LABS: ALBUMIN 3.7 g/dl (3.4-5.0); ALK PHOS 74 U/L (45-117); ANION GAP -1 (8-16); BILIRUBIN,TOTAL 0.2 mg/dL (0.2-1.0); BLOOD UREA NITROGEN 11 mg/dL (7-18); CALCIUM 9.3 mg/dL (8.5-10.1); CO2 30 mmol/L (21-32); CREATININE 0.8 mg/dL (0.55-1.02); GLUCOSE,RANDOM 89 mg/dL (74-106); SGOT/AST 15 U/L (15-37); SGPT/ALT 20 U/L (12-78); TOT PROT 7.7 g/dl (6.4-8.2)
--- NOTE | 2017-12-08 13:36 | PN ---
S CIWA - CIWA Score Nausea/Vomitin Muscle Tremors: 3 Anxiety: 3 Agitation: 3 Paroxysmal Sweats: 1-Minimal Palms Moist Orientation: 0-Oriented Tacttile Disturbances: 1-Very Mild Itch/Numbness Auditory Disturbances: 1-Very Mild Visual Disturbances: 0-None Headache: 2-Mild CIWA-Ar Total Score: 17 BHS Progress Note (SOAP) Subjective: ALERT,IRRITABLE,ANXIOUS,INTERRUPTED SLEEP,TREMOR Objective: 12/08/17 13:33 Vital Signs Temperature 98.6 F 12/08/17 11:10 Pulse Rate 70 12/08/17 11:10 Respiratory Rate 20 12/08/17 11:10 Blood Pressure 149/109 12/08/17 11:10 O2 Sat by Pulse Oximetry (%) 12/08/17 13:33 EKG NSR 1ST DEGREE AV BLOCK 67/MIN NO CHEST PAIN,NO SOB,NO DIZZINESS Laboratory Last Values WBC 5.6 K/mm3 (4.0-10.0) 12/08/17 06:20 RBC 4.17 M/mm3 (3.60-5.2) 12/08/17 06:20 Hgb 13.0 GM/dL (10.7-15.3) 12/08/17 06:20 Hct 38.8 % (32.4-45.2) 12/08/17 06:20 MCV 93.1 fl (80-96) 12/08/17 06:20 MCH 31.3 pg (25.7-33.7) 12/08/17 06:20 MCHC 33.6 g/dl (32.0-36.0) 12/08/17 06:20 RDW 14.5 % (11.6-15.6) 12/08/17 06:20 Plt Count 232 K/MM3 (134-434) 12/08/17 06:20 MPV 9.8 fl (7.5-11.1) 12/08/17 06:20 Sodium 137 mmol/L (136-145) 12/08/17 06:20 Potassium 4.3 mmol/L (3.5-5.1) 12/08/17 06:20 Chloride 108 mmol/L (98-107) H 12/08/17 06:20 Carbon Dioxide 30 mmol/L (21-32) 03/31/18 06:20 Anion Gap -1 (8-16) L 12/08/17 06:20 BUN 11 mg/dL (7-18) 12/08/17 06:20 Creatinine 0.8 mg/dL (0.55-1.02) 12/08/17 06:20 Creat Clearance w eGFR > 60 (>60) 12/08/17 06:20 POC Glucometer 105 UNITS (80-120) 12/08/17 05:12 Random Glucose 89 mg/dL (74-106) 12/08/17 06:20 Calcium 9.3 mg/dL (8.5-10.1) 12/08/17 06:20 Total Bilirubin 0.2 mg/dL (0.2-1.0) D 12/08/17 06:20 AST 15 U/L (15-37) 12/08/17 06:20 ALT 20 U/L (12-78) 12/08/17 06:20 Alkaline Phosphatase 74 U/L (45-117) 12/08/17 06:20 Total Protein 7.7 g/dl (6.4-8.2) 12/08/17 06:20 Albumin 3.7 g/dl (3.4-5.0) 12/08/17 06:20 Urine Color Yellow 12/07/17 23:53 Urine Appearance Slcloudy 12/07/17 23:53 Urine pH 5.0 (5.0-8.0) 12/07/17 23:53 Ur Specific [place] 1.012 (1.001-1.035) 12/07/17 23:53 Urine Protein Negative (NEGATIVE) 12/07/17 23:53 Urine Glucose (UA) Negative (NEGATIVE) 12/07/17 23:53 Urine Ketones Negative (NEGATIVE) 12/07/17 23:53 Urine Blood Negative (NEGATIVE) 12/07/17 23:53 Urine Nitrite Negative (NEGATIVE) 12/07/17 23:53 Urine Bilirubin Negative (<2.0 mg/dL) 12/07/17 23:53 Urine Urobilinogen Negative mg/dL (0.2-1.0) 12/07/17 23:53 Ur Leukocyte Esterase Negative (NEGATIVE) 12/07/17 23:53 RPR Titer Nonreactive (NONREACTIVE) 12/08/17 06:20 HIV 1&2 Antibody Screen Negative 12/08/17 08:00 HIV P24 Antigen Negative 12/08/17 08:00 Assessment: 12/08/17 13:42 WITHDRAWAL SYMPTOM Plan: CONTINUE DETOX
--- NOTE | 2017-12-08 17:40 | CONSULT ---
[facility] Psychiatric Consult - Data Date of interview: 12/08/17 Admission source: [facility] Identifying data: This is one of several admissions to [facility] for this 62 y/ o AA female seeking detox treatment on for alcohol and cannabis dependence.Patient is single,a mother of one,domiciled,unemployed and supported on SSI benefits. Substance Abuse History: Discussed and confirmed by the patient in this session. [facility] in [facility] report : Smoking history: Current every day smoker. Have you smoked in the past 12 months: Yes. Aproximately how many cigarettes per day: 10. Cigars Per Day: 0. Hx Chewing Tobacco Use: No. Initiated information on smoking cessation: Yes. 'Breaking Loose' booklet given : 12/07/17. - Substance & Tx. History. Hx Alcohol Use: Yes. Hx Substance Use : Yes. Substance Use Type: Alcohol, Marijuana. Hx Substance Use Treatment: Yes ([facility] - Substances Abused. Alcohol. Route: Oral. Frequency: Daily. Amount used: 5 - 12 oz beer. Age of first use: 24. Date of Last Use: 12/07/17. Marijuana/Hashish. Route: Smoking. Frequency: Daily. Amount used: 1 joint. Age of first use: 16. 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 Psychiatric History: First contact with psychiatry (in her late 20's) to address complaints of persecutory delusions and auditory hallucinations.Diagnosed at the time with Parnoid Schizophrenia.Patient admits to 5-7 psychiatric hospitalizations,past exposure to various medications ( valproate,haloperidol,seroquel and others).In 2003,diagnosis was revised for Schizoaffective Disorder.Chronically non-adherent to psychiatric OPD care.Has been off psychotropic medications for years.Totally lost to follow-up.Ms Crystal denies history of suicide attempts. Physical/Sexual Abuse/Trauma History: Patient denies. Additional Comment: Urine Drug Screen Results: THC-Marijuana.Noted. Mental Status Exam - Mental Status Exam Alert and Oriented to: Time, Place, Person Cognitive Function: Grossly Intact Patient Appearance: Unkempt, Disheveled Mood: Hopeful, Euthymic Affect: Normal Range Patient Behavior: Fatigued, Cooperative Speech Pattern: Clear, Appropriate Voice Loudness: Normal Thought Process: Goal Oriented Thought Disorder: Bizarre Hallucinations: Denies Suicidal Ideation: Denies Homicidal Ideation: Denies Insight/Judgement: Poor Sleep: Well Appetite: Good Gait/Station: Other (difficult ambulation ; uses a cane) Psychiatric Findings - Problem List ([place] 1, 2,3) (1) Alcohol dependence with uncomplicated withdrawal Current Visit: Yes Status: Acute (2) Cannabis abuse Current Visit: Yes Status: Acute (3) Nicotine dependence Current Visit: Yes Status: Acute Qualifiers: Nicotine product type: cigarettes Substance use status: uncomplicated Qualified Code(s): F17.210 - Nicotine dependence, cigarettes, uncomplicated (4) Schizoaffective disorder Current Visit: No Status: Chronic Comment: As per history and existing records.Patient is non-compliant with OPD care.OFF medications for years. (5) Substance induced mood disorder Current Visit: Yes Status: Acute - Initial Treatment Plan Initial Treatment Plan: Patient is not receptive to psychoeducation.Detoxification in progress.Falls precautions.Observation.
--- NOTE | 2017-12-08 18:28 | EKG ---
Test Reason : Blood Pressure : / mmHG Vent. Rate : 063 BPM Atrial Rate : 063 BPM P-R Int : 232 ms QRS Dur : 092 ms QT Int : 412 ms P-R-T Axes : 070 -21 058 degrees QTc Int : 421 ms SINUS RHYTHM WITH 1ST DEGREE A-V BLOCK OTHERWISE NORMAL ECG WHEN COMPARED WITH ECG OF 31-MAY-2017 20:04, NO SIGNIFICANT CHANGE WAS FOUND Confirmed by MD GERRI, FAVIAN ([id number]) on 12/08/2017 6:27:52 PM Referred By: Confirmed By:FAVIAN TALLEY MD
[2017-12-08] MEDS: CARVEDILOL 12.5 MG TABLET (FP) PO SCH (22:13)
[2017-12-08] MEDS: THIAMINE HCL 100 MG TABLET (FP) PO SCH (22:13)
[2017-12-08] MEDS: ATORVASTATIN CA 40 MG TABLET (FP) PO SCH (22:14)
[2017-12-09] MEDS: chlordiazePOXIDE HCL 25 MG CAPSULE PO SCH ×2 (05:39→10:03)
[2017-12-09] MEDS ORDERED: CLOPIDOGREL BISULFATE 75 MG TABLET (FP) PO SCH (10:00)
[2017-12-09] MEDS ORDERED: LOSARTAN POTASSIUM 50 MG TABLET (FP) PO SCH (10:00)
[2017-12-09] MEDS: PRENATAL VITAMINS W/ FOLIC ACID TABLET (FP) PO SCH (10:04)
[2017-12-09] MEDS: CARVEDILOL 12.5 MG TABLET (FP) PO SCH ×2 (10:04→23:04)
[2017-12-09] MEDS: NICOTINE 21 MG/24 HOURS TOPICAL PATCH TD SCH (10:04)
--- NOTE | 2017-12-09 11:22 | PN ---
S CIWA - CIWA Score Nausea/Vomitin-No Nausea/No Vomiting Muscle Tremors: 3 Anxiety: 4-Mod. Anxious/Guarded Agitation: 4-Moderately Restless Paroxysmal Sweats: 1-Minimal Palms Moist Orientation: 0-Oriented Tacttile Disturbances: 1-Very Mild Itch/Numbness Auditory Disturbances: 0-None Visual Disturbances: 0-None Headache: 0-None Present CIWA-Ar Total Score: 13 BHS Progress Note (SOAP) Subjective: sweat tremor anxiety restlessness irritable has appointment with agriculture mechanic Objective: 12/09/17 11:23 Vital Signs Temperature 98.2 F 12/09/17 09:54 Pulse Rate 75 12/09/17 09:54 Respiratory Rate 22 12/09/17 09:54 Blood Pressure 147/72 12/09/17 09:54 O2 Sat by Pulse Oximetry (%) Laboratory Last Values WBC 5.6 K/mm3 (4.0-10.0) 12/08/17 06:20 RBC 4.17 M/mm3 (3.60-5.2) 12/08/17 06:20 Hgb 13.0 GM/dL (10.7-15.3) 12/08/17 06:20 Hct 38.8 % (32.4-45.2) 12/08/17 06:20 MCV 93.1 fl (80-96) 12/08/17 06:20 MCH 31.3 pg (25.7-33.7) 12/08/17 06:20 MCHC 33.6 g/dl (32.0-36.0) 12/08/17 06:20 RDW 14.5 % (11.6-15.6) 12/08/17 06:20 Plt Count 232 K/MM3 (134-434) 12/08/17 06:20 MPV 9.8 fl (7.5-11.1) 12/08/17 06:20 Sodium 137 mmol/L (136-145) 12/08/17 06:20 Potassium 4.3 mmol/L (3.5-5.1) 12/08/17 06:20 Chloride 108 mmol/L (98-107) H 12/08/17 06:20 Carbon Dioxide 30 mmol/L (21-32) 12/08/17 06:20 Anion Gap -1 (8-16) L 12/08/17 06:20 BUN 11 mg/dL (7-18) 12/08/17 06:20 Creatinine 0.8 mg/dL (0.55-1.02) 12/08/17 06:20 Creat Clearance w eGFR > 60 (>60) 12/08/17 06:20 POC Glucometer 120 UNITS (80-120) 12/09/17 05:42 Random Glucose 89 mg/dL (74-106) 12/08/17 06:20 Calcium 9.3 mg/dL (8.5-10.1) 12/08/17 06:20 Total Bilirubin 0.2 mg/dL (0.2-1.0) D 12/08/17 06:20 AST 15 U/L (15-37) 12/08/17 06:20 ALT 20 U/L (12-78) 12/08/17 06:20 Alkaline Phosphatase 74 U/L (45-117) 12/08/17 06:20 Total Protein 7.7 g/dl (6.4-8.2) 12/08/17 06:20 Albumin 3.7 g/dl (3.4-5.0) 12/08/17 06:20 Urine Color Yellow 12/07/17 23:53 Urine Appearance Slcloudy 12/07/17 23:53 Urine pH 5.0 (5.0-8.0) 12/07/17 23:53 Ur Specific [place] 1.012 (1.001-1.035) 12/07/17 23:53 Urine Protein Negative (NEGATIVE) 12/07/17 23:53 Urine Glucose (UA) Negative (NEGATIVE) 12/07/17 23:53 Urine Ketones Negative (NEGATIVE) 12/07/17 23:53 Urine Blood Negative (NEGATIVE) 12/07/17 23:53 Urine Nitrite Negative (NEGATIVE) 12/07/17 23:53 Urine Bilirubin Negative (<2.0 mg/dL) 12/07/17 23:53 Urine Urobilinogen Negative mg/dL (0.2-1.0) 12/07/17 23:53 Ur Leukocyte Esterase Negative (NEGATIVE) 12/07/17 23:53 RPR Titer Nonreactive (NONREACTIVE) 12/08/17 06:20 HIV 1&2 Antibody Screen Negative 12/08/17 08:00 HIV P24 Antigen Negative 12/08/17 08:00 labnoted Assessment: 12/09/17 11:23 withdrawal sx left foot callus Plan: continue detox cane for ambulation no full weight to left foot
--- NOTE | 2017-12-09 14:38 | PN ---
[facility] Progress Note Note: patient reported feeling better alert oriented x 3 would like to terminate alcohol detox 12/10/17 able to rest without interrupted tolerates food and fluid well denies gi distress denies pain patient stated that she dose not have alcohol withdrawal sx change librium regimen to 10 mg today encourage observe one more night will reassess 12/10/17
[2017-12-09] MEDS ORDERED: chlordiazePOXIDE 5 MG CAPSULE PO SCH (17:00)
[2017-12-09] MEDS: chlordiazePOXIDE HCL 10 MG CAPSULE PO SCH ×2 (18:18→23:05)
[2017-12-09] MEDS: THIAMINE HCL 100 MG TABLET (FP) PO SCH (23:05)
[2017-12-09] MEDS: ATORVASTATIN CA 40 MG TABLET (FP) PO SCH (23:05)
[2017-12-10] MEDS: chlordiazePOXIDE HCL 10 MG CAPSULE PO SCH (06:35)
--- NOTE | 2017-12-10 08:28 | PN ---
S Progress Note (SOAP) Subjective: ALERT,NO COMPLAINT Objective: 12/10/17 08:27 Vital Signs Temperature 97.0 F L 12/10/17 05:54 Pulse Rate 61 12/10/17 05:54 Respiratory Rate 18 12/10/17 05:54 Blood Pressure 143/84 12/10/17 05:54 O2 Sat by Pulse Oximetry (%) Assessment: 12/10/17 08:27 STABLE FOR DISCHARGE,NO WITHDRAWAL SYMPTOM Plan: DISCHARGE TODAY,FOLLOW UP WITH AFTER CARE PROGRAM ARRANGEMENT
--- NOTE | 2017-12-10 08:34 | DS ---
[facility] Detox Discharge Summary Admission Date: 12/07/17 Discharge Date: 12/10/17 - History Present History: Cannabis Dependence, Opioid Dependence Additional Comments: PATIENT IS STABLE FOR DISCHARGE,WOULD LIKE TO LEAVE TO CARE FOR FAMILY,HAS ALL MEDICATIONS AT HOME, FOLLOW UP WITH AFTER CARE PROGRAM ARRANGEMENT Pertinent Past History: LOW BACK PAIN LEFT HIP PAIN PVD NEUROPATHY TYPE 2 DM HYPERTENSION AMBULATION WITH CANE - Physical Exam Results Vital Signs: Vital Signs Temperature 97.0 F L 12/10/17 05:54 Pulse Rate 61 12/10/17 05:54 Respiratory Rate 18 12/10/17 05:54 Blood Pressure 143/84 12/10/17 05:54 O2 Sat by Pulse Oximetry (%) Pertinent Admission Physical Exam Findings: WITHDRAWAL SIGNS AND SYMPTOM Vital Signs Temperature 97.5 F L 12/10/17 09:00 Pulse Rate 81 12/10/17 09:00 Respiratory Rate 20 12/10/17 09:00 Blood Pressure 148/93 12/10/17 09:00 O2 Sat by Pulse Oximetry (%) Laboratory Last Values WBC 5.6 K/mm3 (4.0-10.0) 12/08/17 06:20 RBC 4.17 M/mm3 (3.60-5.2) 12/08/17 06:20 Hgb 13.0 GM/dL (10.7-15.3) 12/08/17 06:20 Hct 38.8 % (32.4-45.2) 12/08/17 06:20 MCV 93.1 fl (80-96) 12/08/17 06:20 MCH 31.3 pg (25.7-33.7) 12/08/17 06:20 MCHC 33.6 g/dl (32.0-36.0) 12/08/17 06:20 RDW 14.5 % (11.6-15.6) 12/08/17 06:20 Plt Count 232 K/MM3 (134-434) 12/08/17 06:20 MPV 9.8 fl (7.5-11.1) 12/08/17 06:20 Sodium 137 mmol/L (136-145) 12/08/17 06:20 Potassium 4.3 mmol/L (3.5-5.1) 12/08/17 06:20 Chloride 108 mmol/L (98-107) H 12/08/17 06:20 Carbon Dioxide 30 mmol/L (21-32) 12/08/17 06:20 Anion Gap -1 (8-16) L 12/08/17 06:20 BUN 11 mg/dL (7-18) 12/08/17 06:20 Creatinine 0.8 mg/dL (0.55-1.02) 12/08/17 06:20 Creat Clearance w eGFR > 60 (>60) 12/08/17 06:20 POC Glucometer 101 UNITS (80-120) 12/10/17 05:42 Random Glucose 89 mg/dL (74-106) 12/08/17 06:20 Calcium 9.3 mg/dL (8.5-10.1) 12/08/17 06:20 Total Bilirubin 0.2 mg/dL (0.2-1.0) D 12/08/17 06:20 AST 15 U/L (15-37) 12/08/17 06:20 ALT 20 U/L (12-78) 12/08/17 06:20 Alkaline Phosphatase 74 U/L (45-117) 12/08/17 06:20 Total Protein 7.7 g/dl (6.4-8.2) 12/08/17 06:20 Albumin 3.7 g/dl (3.4-5.0) 12/08/17 06:20 Urine Color Yellow 12/07/17 23:53 Urine Appearance Slcloudy 12/07/17 23:53 Urine pH 5.0 (5.0-8.0) 12/07/17 23:53 Ur Specific [place] 1.012 (1.001-1.035) 12/07/17 23:53 Urine Protein Negative (NEGATIVE) 12/07/17 23:53 Urine Glucose (UA) Negative (NEGATIVE) 12/07/17 23:53 Urine Ketones Negative (NEGATIVE) 12/07/17 23:53 Urine Blood Negative (NEGATIVE) 12/07/17 23:53 Urine Nitrite Negative (NEGATIVE) 12/07/17 23:53 Urine Bilirubin Negative (<2.0 mg/dL) 12/07/17 23:53 Urine Urobilinogen Negative mg/dL (0.2-1.0) 12/07/17 23:53 Ur Leukocyte Esterase Negative (NEGATIVE) 12/07/17 23:53 RPR Titer Nonreactive (NONREACTIVE) 12/08/17 06:20 HIV 1&2 Antibody Screen Negative 12/08/17 08:00 HIV P24 Antigen Negative 12/08/17 08:00 - Treatment Hospital Course: Detox Protocol Followed, Detoxed Safely, Responded well, Discharged Condition Good Patient has Accepted a Rehab Referral to: [facility] - Medication Discharge Medications: Ambulatory Orders Metformin HCl 850 mg PO DAILY 07/07/14 Gabapentin [Neurontin] 600 mg PO BID 11/25/14 Carvedilol 12.5 mg PO BID #60 tablet 12/14/14 Clopidogrel Bisulfate [Plavix -] 75 mg PO DAILY #30 tablet 12/14/14 Ergocalciferol [Vitamin D2] 50,000 unit PO Q7D@1000 02/17/15 Atorvastatin Ca [Lipitor] 40 mg PO DAILY 12/07/17 Hydroxychloroquine Sulfate 200 mg PO DAILY 12/07/17 Losartan Potassium 50 mg PO DAILY 12/07/17 - Diagnosis (1) Alcohol dependence with uncomplicated withdrawal Status: Acute (2) Neuropathy Status: Acute (3) Cannabis abuse Status: Acute (4) Left hip pain Status: Chronic (5) Low back pain Status: Chronic Qualifiers: Chronicity: chronic (6) Nicotine dependence Status: Acute Qualifiers: Nicotine product type: cigarettes Substance use status: uncomplicated Qualified Code(s): F17.210 - Nicotine dependence, cigarettes, uncomplicated (7) PVD (peripheral vascular disease) Status: Chronic (8) Diabetes mellitus type II, controlled Status: Chronic Qualifiers: Diabetes mellitus rat exterminator insulin use: without rat exterminator use Diabetes mellitus complication status: with neurologic complications Diabetes mellitus complication detail: with mononeuropathy Qualified Code(s): E11.41 - Type 2 diabetes mellitus with diabetic mononeuropathy (9) Hypertension Status: Chronic Qualifiers: Hypertension type: essential hypertension Qualified Code(s): I10 - Essential (primary) hypertension (10) Use of cane as ambulatory aid Status: Chronic - AMA Did Patient Leave Against Medical Advice: No
[2017-12-10 09:00] VITALS: BP 148/93; PULSE 81; TEMP 97.5
[2017-12-10] MEDS ORDERED: chlordiazePOXIDE HCL 10 MG CAPSULE PO SCH (17:00)
[2017-12-15] MEDS ORDERED: ERGOCALCIFEROL (VITAMIN D2) 50,000 UNIT CAPSULE (FP) PO SCH (10:00)
== END 2017-12-10 09:50 | disposition home or self-care (01) | DRG 773 ==
LOC: YASAS 11:18 → Y6N 15:34 → Y3N 12-08 02:40 → Y6N 12-08 02:48
PROVIDERS: ADMIT Internal Medicine; ATTEND Internal Medicine
PROC: HZ2ZZZZ Detoxification Services for Substance Abuse Treatment (ICD-10-PCS; principal; 2017-12-07)
DX: F11.23 Opioid dependence with withdrawal (principal); F12.20 Cannabis dependence, uncomplicated; F17.210 Nicotine dependence, cigarettes, uncomplicated; F25.9 Schizoaffective disorder, unspecified; F19.24 Other psychoactive substance dependence with psychoactive substance-induced mood disorder; I10 Essential (primary) hypertension; E11.9 Type 2 diabetes mellitus without complications; Z79.84 Long term (current) use of oral hypoglycemic drugs; G62.9 Polyneuropathy, unspecified; M54.5 Low back pain; I73.9 Peripheral vascular disease, unspecified; Z86.69 Personal history of other diseases of the nervous system and sense organs; R26.89 Other abnormalities of gait and mobility; Z99.89 Dependence on other enabling machines and devices; Z95.828 Presence of other vascular implants and grafts
CPT/HCPCS: 36415; 80053; 81003; 82962; 85027; 86593; 87389; 93005; 93010

== ENCOUNTER 2019-10-24 10:21 | Inpatient (IN) | payer OTHER ==
--- NOTE | 2019-10-24 10:57 | HP ---
CIWA Score Nausea/Vomitin-Mild Nausea/No Vomiting Muscle Tremors: 2 Anxiety: 3 Agitation: 4-Moderately Restless Paroxysmal Sweats: 3 Orientation: 0-Oriented Tacttile Disturbances: 0-None Auditory Disturbances: 0-None Visual Disturbances: 0-None Headache: 2-Mild CIWA-Ar Total Score: 15 - Admission Criteria OASAS Guidelines: Admission for Medically Managed Detox: Requires at least one of the followin. CIWA greater than 12 2. Seizures within the past 24 hours 3. Delirium tremens within the past 24 hours 4. Hallucinations within the past 24 hours 5. Acute intervention needed for co occurring medical disorder 6. Acute intervention needed for co occurring psychiatric disorder 7. Severe withdrawal that cannot be handled at a lower level of care (continued vomiting, continued diarrhea, abnormal vital signs) requiring intravenous medication and/or fluids 8. Admitting History and Physical - Admission Chief Complaint: " I want to dry out prior to entering a outpatient treatment in [facility].". " I see myself slipping away." History of Present Illness: 64 year old female with alcohol dependence with withdrawal and cannabis use disorder seeking detox prior to entering [facility] outpatient treatment program. She feels she needs detox because " see myself slipping away." She drinking up to 6 beers daily and did have a withdrawal seizuere at age 21 She also has multiple medical problems: Rheumatoid arthritis, DM, HLD, CAD< COPE, HCV which has been treated, PVD with a Left leg stent in place. Psych: History of Depression but on no meds. She feels she needs a controlled environment to remain abstinent from alcohol. Also, because of her multiple medical problems she needs inpatient detox. - Past Medical History ...LMP: 03/27/06 - Smoking History Smoking history: Current every day smoker Have you smoked in the past 12 months: Yes Aproximately how many cigarettes per day: 10 - Alcohol/Substance Use Hx Alcohol Use: Yes Admission [facility] Allergies/Adverse Reactions: Allergies Allergy/AdvReac Type Severity Reaction Status Date / Time No Known Allergies Allergy Verified 12/07/17 14:15 Exam Limitations: No Limitations - Ebola screening Have you traveled outside of the country in the last 21 days: No Have you had contact with anyone from an Ebola affected area: No Have you been sick,other than usual withdrawal symptoms: No Do you have a fever: No - Review of Systems Constitutional: Unintentional Wgt. Loss EENT: reports: No Symptoms Reported Respiratory: reports: No Symptoms reported Cardiac: reports: No Symptoms Reported GI: reports: No Symptoms Reported : reports: No Symptoms Reported Musculoskeletal: reports: No Symptoms Reported Integumentary: reports: No Symptoms Reported Neuro: reports: No Symptoms reported Endocrine: reports: No Symptoms Reported Hematology: reports: No Symptoms Reported Psychiatric: reports: Judgement Intact, Mood/Affect Appropiate, Orientated x3, Agitated, Anxious Other Systems: Reviewed and Negative Patient History - Patient Medical History Hx Anemia: No Hx Asthma: No Hx Chronic Obstructive Pulmonary Disease (COPD): Yes Hx Cancer: No Hx Cardiac Disorders: No Hx Congestive Heart Failure: No Hx Hypertension: Yes (on meds) Hx Hypercholesterolemia: Yes Hx Pacemaker: No HX Cerebrovascular Accident: No Hx Seizures: Yes (at age 21 from withdrawal X1) Hx Dementia: No Hx Diabetes: Yes Hx Gastrointestinal Disorders: No Hx Liver Disease: No Hx Genitourinary Disorders: No Hx Sexually Transmitted Disorders: No Hx Renal Disease (ESRD): No Hx Thyroid Disease: No Hx Human Immunodeficiency Virus (HIV): No Hx Hepatitis C: Yes Hx Depression: Yes Hx Suicide Attempt: No Hx Bipolar Disorder: No Hx Schizophrenia: No - Patient Surgical History Past Surgical History: No Hx Neurologic Surgery: No Hx Cataract Extraction: No Hx Cardiac Surgery: No Hx Lung Surgery: No Hx Breast Surgery: No Hx Breast Biopsy: No Hx Abdominal Surgery: No Hx Appendectomy: No Hx Cholecystectomy: No Hx Genitourinary Surgery: No Hx Section: No Hx Orthopedic Surgery: No Hx Hysterectomy: No Other Surgical History: s/p stent insertion L leg.2012 Anesthesia Reaction: No - PPD History Previous Implant?: Yes Documented Results: Negative w/proof Implanted On Prior R Admission?: Yes Date: 06/02/17 Results: 0 mm PPD to be Administered?: Yes - Reproductive History Last Menstrual Period: 03/27/06 - Smoking Cessation Smoking history: Current every day smoker Have you smoked in the past 12 months: Yes Aproximately how many cigarettes per day: 10 Cigars Per Day: 0 Hx Chewing Tobacco Use: No Initiated information on smoking cessation: Yes 'Breaking Loose' booklet given: 10/24/19 - Substances abused Alcohol Substance route: Oral Frequency: Daily Amount used: 6 beers Age of first use: 21 Date of last use: 10/24/19 Marijuana/Hashish Substance route: Smoking Frequency: Daily Amount used: 2 joints Age of first use: 16 Date of last use: 10/24/19 Admission Physical Exam [facility] - Physical General Appearance: Yes: No Apparent Distress, Nourished, Appropriately Dressed HEENTM: Yes: EOMI, Hearing grossly Normal, Normal ENT Inspection, Normocephalic , Normal Voice, GUERO, Pharynx Normal, Tm's normal Respiratory: Yes: Chest Non-Tender, Normal Breath Sounds, No Respiratory Distress, No Accessory Muscle Use, Crackles, Other (crackles at the bases) Neck: Yes: No masses,lesions,Nodules, Supple, Trachea in good position Breast: Yes: Breast Exam Deferred Cardiology: Yes: Regular Rhythm, Regular Rate, S1, S2 Abdominal: Yes: Normal Bowel Sounds, Soft, Protuberent Genitourinary: Yes: Within Normal Limits Back: Yes: Normal Inspection Musculoskeletal: Yes: full range of Motion, Gait Steady, Pelvis Stable Extremities: Yes: Normal Capillary Refill, Normal Inspection, Normal Range of Motion, Non-Tender Neurological: Yes: public relations player II-XII NML intact, Fully Oriented, Alert, Motor Strength 5/5, Normal Mood/Affect, Normal Response Integumentary: Yes: Normal Color, Warm Lymphatic: Yes: Within Normal Limits - Diagnostic (1) Alcohol dependence with uncomplicated withdrawal Current Visit: Yes Status: Acute (2) DM (diabetes mellitus) Current Visit: Yes Status: Acute Qualifiers: Diabetes mellitus type: type 2 (3) Neuropathy Current Visit: Yes Status: Acute (4) Nicotine dependence Current Visit: Yes Status: Acute Qualifiers: Nicotine product type: cigarettes Substance use status: uncomplicated Qualified Code(s): F17.210 - Nicotine dependence, cigarettes, uncomplicated (5) COPD (chronic obstructive pulmonary disease) Current Visit: Yes Status: Chronic Qualifiers: COPD type: emphysema Emphysema type: unilateral Qualified Code(s): J43.0 - Unilateral pulmonary emphysema [MacLeod's syndrome] Comment: on meds, sees primary (6) Diabetes mellitus type II, controlled Current Visit: Yes Status: Chronic Qualifiers: Diabetes mellitus alf insulin use: without mixer blender use Diabetes mellitus complication status: with neurologic complications Diabetes mellitus complication detail: with mononeuropathy Qualified Code(s): E11.41 - Type 2 diabetes mellitus with diabetic mononeuropathy (7) Hypertension Current Visit: Yes Status: Chronic Qualifiers: Hypertension type: essential hypertension Qualified Code(s): I10 - Essential (primary) hypertension Comment: on meds, sees primary (8) Left hip pain Current Visit: Yes Status: Chronic Comment: refer to ortho [facility] for eval and imaging - got injection which helped - to f/u with them (9) Low back pain Current Visit: Yes Status: Chronic Qualifiers: Chronicity: chronic Comment: stretches, topical, percocet for pain (10) PVD (peripheral vascular disease) Current Visit: Yes Status: Chronic (11) Rheumatoid arthritis Current Visit: Yes Status: Chronic Qualifiers: Rheumatoid arthritis location: unspecified site Comment: to f/u with dr duffy at [facility] - saw him in aug and had labs done - states f/u (12) Use of cane as ambulatory aid Current Visit: Yes Status: Chronic (13) Depression Current Visit: Yes Status: Suspected Qualifiers: Depression Type: dysthymia Qualified Code(s): F34.1 - Dysthymic disorder Cleared for Admission [facility] - Detox or Rehab [facility] Level of Care: Medically Managed Detox Regimen/Protocol: Librium Claeared for Rehab Admission: No Screened but not Admitted - Documentation of Visit Screened but not Admitted: No Breathalyzer - Breathalyzer Breathalyzer: 0.002 (this am drank) Inpatient Rehab Admission - Rehab Decision to Admit Inpatient rehab admission?: No
[2019-10-24] MEDS ORDERED: ACETAMINOPHEN 325 MG TABLET (FP) PO PRN ×2 (11:28)
[2019-10-24] MEDS ORDERED: LORazepam 1 MG TABLET PO PRN (11:28)
[2019-10-24] MEDS ORDERED: METHOCARBAMOL 500 MG TABLET PO PRN (11:28)
[2019-10-24] MEDS ORDERED: BISMUTH SUBSALICYLATE 262 MG/15 ML BTL PO PRN (11:28)
[2019-10-24] MEDS ORDERED: MAGNESIUM HYDROX 2400MG/30ML ORAL SUSPENSION 30 ML CUP PO PRN (11:28)
[2019-10-24] MEDS ORDERED: MAGNESIUM CITRATE 300 ML BOTTLE PO PRN (11:28)
[2019-10-24] MEDS ORDERED: hydrOXYzine PAMOATE 25 MG CAPSULE (FP) PO PRN (11:28)
[2019-10-24] MEDS ORDERED: IBUPROFEN 400 MG TABLET (FP) PO PRN (11:28)
[2019-10-24] MEDS ORDERED: MELATONIN 5 MG TABLETS PO PRN (11:28)
[2019-10-24] MEDS ORDERED: MENTHOL/PHENOL 1 EACH UD MM PRN (11:28)
[2019-10-24] MEDS ORDERED: MAG HYDROX/AL HYDROX/SIMETH 30 ML UNIT-DOSE CUP PO PRN (11:28)
[2019-10-24 11:55] VITALS: BMI 25.7
--- NOTE | 2019-10-24 13:49 | CONSULT ---
[facility] Psychiatric Consult - Data Date of interview: 10/24/19 Admission source: [facility] Identifying data: Revisit to [facility] and admission to [address] [place] [address] for this 64 y/o AA female self-referred for detoxification treatment. OLYA issues : alcohol, nicotine, cannabis. Patient is single, a mother of one, domiciled, unemployed, disabled and supported on SSI benefits. Substance Abuse History: Discussed with patient. Details in current [facility] report as follows : Smoking history: Current every day smoker. Have you smoked in the past 12 months: Yes. Aproximately how many cigarettes per day: 10. Cigars Per Day: 0. Hx Chewing Tobacco Use: No. Initiated information on smoking cessation : Yes. 'Breaking Loose' booklet given: 10/24/19. - Substances abused. Alcohol. Substance route: Oral. Frequency: Daily. Amount used: 6 beers. Age of first use: 21. Date of last use: 10/24/19. Marijuana/Hashish. Substance route: Smoking. Frequency: Daily. Amount used: 2 joints. Age of first use: 16. 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 Patient ambulates with a cane. Psychiatric History: No changes in psychiatric history since my most recent interview with this patient. Ms Crystal ahd her first contact with Mental Health system in her late 20's (persecutory delusions + auditory hallucinations). She was diagnosed at the time with Paranoid Schizophrenia. Patient endorses a history of 5-7 psychiatric hospitalizations and previous trials of psychotropic drugs (valproate, haloperidol, seroquel and others). " They did not work and I did not need them. The doctors did not even agree on my diagnosis. One said that I am schizophrenic and the other said I am not." In 2003, her diagnosis was revised for Schizoaffective Disorder. Patient is totally non-adherent to psychiatric OPD care. Has dropped out of psychiatric care for years. Patient denies history of suicide attempts. Physical/Sexual Abuse/Trauma History: Patient denies. Additional Comment: No toxicology available for review. Mental Status Exam - Mental Status Exam Alert and Oriented to: Time, Place, Person Cognitive Function: Good Patient Appearance: Well Groomed (missing teeth and poor oral hygiene) Mood: Hopeful, Euthymic Affect: Appropriate, Normal Range Patient Behavior: Fatigued, Appropriate, Cooperative Speech Pattern: Clear, Appropriate Voice Loudness: Normal Thought Process: Intact, Goal Oriented Thought Disorder: Not Present Hallucinations: Denies Suicidal Ideation: Denies Homicidal Ideation: Denies Insight/Judgement: Poor Sleep: Well Appetite: Good Gait/Station: Other (walks with a cane) Psychiatric Findings - Problem List ([place] 1, 2,3) (1) Alcohol dependence with uncomplicated withdrawal Current Visit: Yes Status: Acute (2) Cannabis abuse Current Visit: Yes Status: Chronic (3) Nicotine dependence Current Visit: Yes Status: Chronic Qualifiers: Nicotine product type: cigarettes Substance use status: uncomplicated Qualified Code(s): F17.210 - Nicotine dependence, cigarettes, uncomplicated (4) Schizoaffective disorder Current Visit: Yes Status: Chronic Comment: As per history and existing records. Patient is non-compliant with OPD care. OFF medications for years (by own decision). (5) Non-compliance Current Visit: Yes Status: Chronic - Initial Treatment Plan Initial Treatment Plan: Records reviewed. Interview conducted with medical students in attendance (with patient's verbal agreement). Psychoeducation. Sleep hygiene. Detoxification. AA meetings. MAT services discussed in this session. Patient declines to resume any psychotropic medication with the exception of drugs necessary for detoxification purposes. Observation.
[2019-10-24] MEDS: LORazepam 2 MG TABLET PO SCH ×3 (14:18→23:05)
[2019-10-24] MEDS: NICOTINE 7 MG/24 HOURS TOPICAL PATCH TD SCH (14:19)
[2019-10-24 15:00] LABS: HEMATOCRIT 39.1 % (32.4-45.2); HEMOGLOBIN 13.3 GM/dL (10.7-15.3); MCH 31.4 pg (25.7-33.7); MCHC 33.9 g/dl (32.0-36.0); MEAN CELL VOLUME 92.7 fl (80-96); PLATELET COUNT 236 K/MM3 (134-434); RBC 4.22 M/mm3 (3.60-5.2); RDW 14.2 % (11.6-15.6); WHITE BLOOD COUNT 5.1 K/mm3 (4.0-10.0)
[2019-10-24 15:12] LABS: ALBUMIN 3.7 g/dl (3.4-5.0); BILIRUBIN,TOTAL 0.7 mg/dL (0.2-1); BLOOD UREA NITROGEN 12.9 mg/dL (7-18); CALCIUM 9.6 mg/dL (8.5-10.1); CREATININE 0.8 mg/dL (0.55-1.3); POTASSIUM 4.7 mmol/L (3.5-5.1); TOT PROT 7.8 g/dl (6.4-8.2)
[2019-10-24] MEDS: CARVEDILOL 12.5 MG TABLET (FP) PO SCH (21:30)
[2019-10-24] MEDS ORDERED: CARVEDILOL 12.5 MG TABLET (FP) PO SCH (22:00)
[2019-10-24] MEDS: THIAMINE HCL 100 MG TABLET (FP) PO SCH (23:05)
[2019-10-25] MEDS: LORazepam 2 MG TABLET PO SCH ×4 (05:50→22:56)
[2019-10-25] MEDS: LOSARTAN POTASSIUM 50 MG TABLET (FP) PO SCH ×2 (07:14→10:49)
[2019-10-25] MEDS: CARVEDILOL 12.5 MG TABLET (FP) PO SCH ×3 (07:14→22:57)
[2019-10-25] MEDS ORDERED: CARVEDILOL 12.5 MG TABLET (FP) PO SCH (10:00)
[2019-10-25] MEDS ORDERED: CLOPIDOGREL BISULFATE 75 MG TABLET (FP) PO SCH (10:00)
[2019-10-25] MEDS ORDERED: PRENATAL VITAMINS W/ FOLIC ACID TABLET (FP) PO SCH (10:00)
[2019-10-25] MEDS ORDERED: ATORVASTATIN CA 40 MG TABLET (FP) PO SCH (10:00)
[2019-10-25] MEDS ORDERED: HYDROXYCHLOROQUINE SO4 200 MG TABLET (FP) PO SCH (10:00)
[2019-10-25] MEDS: GABAPENTIN 300 MG CAPSULE PO SCH ×2 (10:22→22:58)
[2019-10-25] MEDS: NICOTINE 7 MG/24 HOURS TOPICAL PATCH TD SCH (10:26)
--- NOTE | 2019-10-25 12:14 | PN ---
S CIWA - CIWA Score Nausea/Vomitin-No Nausea/No Vomiting Muscle Tremors: None Anxiety: 3 Agitation: 0-Normal Activity Paroxysmal Sweats: 3 Orientation: 0-Oriented Tacttile Disturbances: 0-None Auditory Disturbances: 0-None Visual Disturbances: 0-None Headache: 2-Mild CIWA-Ar Total Score: 8 [facility] Progress Note (SOAP) Subjective: c/o sweats, headache, and anxiety. Objective: 10/25/19 12:13 Vital Signs 10/25/19 10/25/19 05:43 08:37 Temperature 96.0 F L 98.0 F Pulse Rate 73 63 Respiratory 18 16 Rate Blood Pressure 161/101 H 145/90 Laboratory Last Values WBC 5.1 K/mm3 (4.0-10.0) 10/24/19 11:50 RBC 4.22 M/mm3 (3.60-5.2) 10/24/19 11:50 Hgb 13.3 GM/dL (10.7-15.3) 10/24/19 11:50 Hct 39.1 % (32.4-45.2) 10/24/19 11:50 MCV 92.7 fl (80-96) 10/24/19 11:50 MCH 31.4 pg (25.7-33.7) 10/24/19 11:50 MCHC 33.9 g/dl (32.0-36.0) 10/24/19 11:50 RDW 14.2 % (11.6-15.6) 10/24/19 11:50 Plt Count 236 K/MM3 (134-434) 10/24/19 11:50 MPV 10.0 fl (7.5-11.1) 10/24/19 11:50 Sodium 140 mmol/L (136-145) 10/24/19 11:50 Potassium 4.7 mmol/L (3.5-5.1) 10/24/19 11:50 Chloride 108 mmol/L (98-107) H 10/24/19 11:50 Carbon Dioxide 27 mmol/L (21-32) 10/24/19 11:50 Anion Gap 5 MMOL/L (8-16) L 10/24/19 11:50 BUN 12.9 mg/dL (7-18) 10/24/19 11:50 Creatinine 0.8 mg/dL (0.55-1.3) 10/24/19 11:50 Est GFR (CKD-EPI)AfAm 90.30 10/24/19 11:50 Est GFR (CKD-EPI)NonAf 77.91 10/24/19 11:50 POC Glucometer 129 UNITS (80-120) 10/25/19 05:53 Random Glucose 92 mg/dL (74-106) 10/24/19 11:50 Calcium 9.6 mg/dL (8.5-10.1) 10/24/19 11:50 Total Bilirubin 0.7 mg/dL (0.2-1) 10/24/19 11:50 AST 17 U/L (15-37) 10/24/19 11:50 ALT 17 U/L (13-61) 10/24/19 11:50 Alkaline Phosphatase 79 U/L (45-117) 10/24/19 11:50 Total Protein 7.8 g/dl (6.4-8.2) 10/24/19 11:50 Albumin 3.7 g/dl (3.4-5.0) 10/24/19 11:50 RPR Titer Nonreactive (NONREACTIVE) 10/24/19 11:50 Labs noted. Assessment: 10/25/19 12:13 AOX3, in no acute respiratory distress. Full ROM, ambulating in the unit with a cane. Withdrawal symptoms. Plan: continue detox.
[2019-10-25] MEDS: THIAMINE HCL 100 MG TABLET (FP) PO SCH (22:58)
[2019-10-26] MEDS ORDERED: LORazepam 1 MG TABLET PO SCH (05:00)
[2019-10-26 07:32] VITALS: PULSE 67
--- NOTE | 2019-10-26 08:39 | DS ---
[facility] Detox Discharge Summary Admission Date: 10/24/19 Discharge Date: 10/26/19 - History Present History: Alcohol Dependence Additional Comments: 64 years old female admitted on 10/24/19 for alcohol withdrawal sx management treated with ativan detox regimnent Ms Crystal prefers to go home today that she wants returning to [facility] for behavior and psychosocial therapies patient is alert oriented x 3 ambulating with cane or four point cane steady gait respiratory clear lungs bilaterally on auscultation abdomen soft round no rebound tenderness skin warm and dry Pertinent Past History: patient prefers to leave the detox today "the food are the same every day" time for discharge: 30 minutes - Physical Exam Results Vital Signs: Vital Signs Temperature 96.7 F L 10/26/19 07:32 Pulse Rate 67 10/26/19 07:32 Respiratory Rate 19 10/26/19 07:32 Blood Pressure 154/79 10/26/19 07:32 O2 Sat by Pulse Oximetry (%) Pertinent Admission Physical Exam Findings: alcohol withdrawal Vital Signs Temperature 96.7 F L 10/26/19 07:32 Pulse Rate 67 10/26/19 07:32 Respiratory Rate 19 10/26/19 07:32 Blood Pressure 154/79 10/26/19 07:32 O2 Sat by Pulse Oximetry (%) Laboratory Last Values WBC 5.1 K/mm3 (4.0-10.0) 10/24/19 11:50 RBC 4.22 M/mm3 (3.60-5.2) 10/24/19 11:50 Hgb 13.3 GM/dL (10.7-15.3) 10/24/19 11:50 Hct 39.1 % (32.4-45.2) 10/24/19 11:50 MCV 92.7 fl (80-96) 10/24/19 11:50 MCH 31.4 pg (25.7-33.7) 10/24/19 11:50 MCHC 33.9 g/dl (32.0-36.0) 10/24/19 11:50 RDW 14.2 % (11.6-15.6) 10/24/19 11:50 Plt Count 236 K/MM3 (134-434) 10/24/19 11:50 MPV 10.0 fl (7.5-11.1) 10/24/19 11:50 Sodium 140 mmol/L (136-145) 10/24/19 11:50 Potassium 4.7 mmol/L (3.5-5.1) 10/24/19 11:50 Chloride 108 mmol/L (98-107) H 10/24/19 11:50 Carbon Dioxide 27 mmol/L (21-32) 10/24/19 11:50 Anion Gap 5 MMOL/L (8-16) L 10/24/19 11:50 BUN 12.9 mg/dL (7-18) 10/24/19 11:50 Creatinine 0.8 mg/dL (0.55-1.3) 10/24/19 11:50 Est GFR (CKD-EPI)AfAm 90.30 10/24/19 11:50 Est GFR (CKD-EPI)NonAf 77.91 10/24/19 11:50 POC Glucometer 106 UNITS (80-120) 10/26/19 05:52 Random Glucose 92 mg/dL (74-106) 10/24/19 11:50 Calcium 9.6 mg/dL (8.5-10.1) 10/24/19 11:50 Total Bilirubin 0.7 mg/dL (0.2-1) 10/24/19 11:50 AST 17 U/L (15-37) 10/24/19 11:50 ALT 17 U/L (13-61) 10/24/19 11:50 Alkaline Phosphatase 79 U/L (45-117) 10/24/19 11:50 Total Protein 7.8 g/dl (6.4-8.2) 10/24/19 11:50 Albumin 3.7 g/dl (3.4-5.0) 10/24/19 11:50 RPR Titer Nonreactive (NONREACTIVE) 10/24/19 11:50 lab noted long history of hypertension patient prefers to take coreg when reach home - Treatment Hospital Course: Detox Protocol Followed, Detoxed Safely, Responded well, Discharged Condition Good, Rehab Referral Accepted Patient has Accepted a Rehab Referral to: [facility] - Medication Discharge Medications: Ambulatory Orders metFORMIN HCL [Metformin HCl] 850 mg PO DAILY 07/07/14 Gabapentin [Neurontin] 600 mg PO BID 11/25/14 Carvedilol 12.5 mg PO BID #60 tablet 12/14/14 Clopidogrel Bisulfate [Plavix -] 75 mg PO DAILY #30 tablet 12/14/14 Ergocalciferol [Vitamin D2] 50,000 unit PO Q7D@1000 02/17/15 Atorvastatin Ca [Lipitor] 40 mg PO DAILY 12/07/17 Hydroxychloroquine Sulfate 200 mg PO DAILY 12/07/17 Losartan Potassium 50 mg PO DAILY 12/07/17 Nicotine [Nicotine Patch 21 mg/24 hr] 1 each TD DAILY 10/24/19 - Diagnosis (1) Alcohol dependence with uncomplicated withdrawal Current Visit: Yes Status: Acute (2) DM (diabetes mellitus) Current Visit: Yes Status: Chronic Qualifiers: Diabetes mellitus type: type 2 Diabetes mellitus continuous churn buttermaker insulin use: without shelter use Diabetes mellitus complication status: with neurologic complications Diabetes mellitus complication detail: with unspecified neuropathy Qualified Code(s): E11.40 - Type 2 diabetes mellitus with diabetic neuropathy, unspecified (3) Neuropathy Current Visit: Yes Status: Chronic (4) COPD (chronic obstructive pulmonary disease) Current Visit: Yes Status: Chronic Qualifiers: COPD type: emphysema Emphysema type: unilateral Qualified Code(s): J43.0 - Unilateral pulmonary emphysema [MacLeod's syndrome] (5) Diabetes mellitus type II, controlled Current Visit: Yes Status: Chronic Qualifiers: Diabetes mellitus shelter insulin use: without continuous churn buttermaker use Diabetes mellitus complication status: with neurologic complications Diabetes mellitus complication detail: with unspecified neuropathy Qualified Code(s): E11.40 - Type 2 diabetes mellitus with diabetic neuropathy, unspecified (6) Hypertension Current Visit: Yes Status: Chronic Qualifiers: Hypertension type: essential hypertension Qualified Code(s): I10 - Essential (primary) hypertension (7) Nicotine dependence Current Visit: Yes Status: Acute Qualifiers: Nicotine product type: cigarettes Substance use status: in withdrawal Qualified Code(s): F17.213 - Nicotine dependence, cigarettes, with withdrawal (8) Use of cane as ambulatory aid Current Visit: Yes Status: Chronic (9) Substance induced mood disorder Current Visit: Yes Status: Suspected - AMA Did Patient Leave Against Medical Advice: No CIWA Score - CIWA Score Nausea/Vomitin-No Nausea/No Vomiting Muscle Tremors: None Anxiety: 1-Mildly Anxious Agitation: 0-Normal Activity Paroxysmal Sweats: 2 Orientation: 0-Oriented Tacttile Disturbances: 0-None Auditory Disturbances: 0-None Visual Disturbances: 0-None Headache: 0-None Present CIWA-Ar Total Score: 3
[2019-10-26 11:10] VITALS: BP 157/90; TEMP 97.5
[2019-10-27] MEDS ORDERED: LORazepam 0.5 MG TABLET PO PRN
[2019-10-27] MEDS ORDERED: LORazepam 0.5 MG TABLET PO SCH (05:00)
[2019-10-28] MEDS ORDERED: LORazepam 0.5 MG TABLET PO ONE (05:00)
[2019-10-31] MEDS ORDERED: ERGOCALCIFEROL (VIT D2) 50,000 UNIT (1.25 MG) CAPSULE PO SCH (10:00)
== END 2019-10-26 11:20 | disposition home or self-care (01) | DRG 775 ==
LOC: YASAS 10:21 → Y3N 11:41
PROVIDERS: ADMIT Allergy & Immunology; ATTEND Allergy & Immunology
PROC: HZ2ZZZZ Detoxification Services for Substance Abuse Treatment (ICD-10-PCS; principal; 2019-10-24)
DX: F10.230 Alcohol dependence with withdrawal, uncomplicated (principal); F12.10 Cannabis abuse, uncomplicated; F17.213 Nicotine dependence, cigarettes, with withdrawal; F34.1 Dysthymic disorder; F32.9 Major depressive disorder, single episode, unspecified; F19.24 Other psychoactive substance dependence with psychoactive substance-induced mood disorder; F25.9 Schizoaffective disorder, unspecified; I10 Essential (primary) hypertension; E11.42 Type 2 diabetes mellitus with diabetic polyneuropathy; Z79.84 Long term (current) use of oral hypoglycemic drugs; J44.9 Chronic obstructive pulmonary disease, unspecified; B18.2 Chronic viral hepatitis C; M06.9 Rheumatoid arthritis, unspecified; M54.5 Low back pain; M25.552 Pain in left hip; I69.854 Hemiplegia and hemiparesis following other cerebrovascular disease affecting left non-dominant side; Z99.89 Dependence on other enabling machines and devices
CPT/HCPCS: 36415; 80053; 81025; 82962; 85027; 86593

== ENCOUNTER 2024-10-26 16:19 | Inpatient (IN) | payer MEDICARE, OTHER ==
[2024-10-26] MEDS ORDERED: ALBUTEROL SO4 2.5/IPRATROPIUM 0.5 INH SOL 3 ML VIAL.NEB. NEB ONE (17:18)
[2024-10-26] MEDS ORDERED: CEFTRIAXONE 1 G/50 ML PREMIX 50 ML IVPB ONE (17:23)
[2024-10-26] MEDS ORDERED: methylPREDNISolone NA SUCC 125 MG/2 ML VIAL ONE (17:23)
[2024-10-26] MEDS ORDERED: AZITHROMYCIN IVPB 500 MG/250 ML BAG IVPB ONE ×2 (17:24→21:44)
[2024-10-26] MEDS: methylPREDNISolone NA SUCC 125 MG/2 ML VIAL IVPUSH ONE (17:26)
[2024-10-26] MEDS: ALBUTEROL SO4 2.5/IPRATROPIUM 0.5 INH SOL 3 ML VIAL.NEB. NEB SCH (17:27)
[2024-10-26] MEDS: CEFTRIAXONE 1,000 MG in DEXTROSE 5%-WATER - 50 ML IVPB ONE (17:27)
[2024-10-26 17:55] LABS: VENOUS BASE EXCESS -3.9 mmol/L (-2-2); VENOUS O2 SATURATION 39.5 % (70-80); VENOUS PCO2 39.8 mmHg (38-52); VENOUS PH 7.349 (7.310-7.410)
[2024-10-26 17:57] LABS: BASO % 0.5 % (0-2.0); HEMATOCRIT 34.8 % (32.4-45.2); HEMOGLOBIN 11.6 GM/dL (10.7-15.3); LYMPH % 5.3 % (8-40); MCH 29.1 pg (25.7-33.7); MCHC 33.2 g/dl (32.0-36.0); MEAN CELL VOLUME 87.7 fl (80-96); MEAN PLT VOLUME 8.9 fl (7.5-11.1); MONO % 4.3 % (3.8-10.2); NEUT % 89.9 % (42.8-82.8); PLATELET COUNT 232 10^3/uL (134-434); RBC 3.97 M/mm3 (3.60-5.2); RDW 14.7 % (11.6-15.6); WHITE BLOOD COUNT 9.1 K/mm3 (4.0-10.0)
[2024-10-26 18:06] LABS: INR 1.28 (0.83-1.09); PROTHROMBIN TIME (PATIENT) 13.9 SEC (9.7-13.0)
[2024-10-26 18:08] LABS: ACTIVATED PTT 30.7 SECONDS (25.2-36.5)
[2024-10-26 18:18] LABS: MAGNESIUM 1.6 mg/dL (1.8-2.4)
[2024-10-26] MEDS: AZITHROMYCIN IVPB 500 MG in DEXTROSE 5%-WATER - 250 ML IVPB ONE ×2 (18:19→21:46)
[2024-10-26] MEDS ORDERED: MAGNESIUM SULFATE IN WATER 2 GM/50 ML IVPB IVPB ONE (18:20)
[2024-10-26] MEDS ORDERED: OSELTAMIVIR PHOSPHATE 75 MG CAPSULE ONE (18:21)
[2024-10-26] MEDS ORDERED: ACETAMINOPHEN INJECTION 100 ML ONE (18:21)
[2024-10-26 18:22] LABS: PHOSPHOROUS 2.7 mg/dL (2.5-4.9)
[2024-10-26 18:25] LABS: POTASSIUM 3.5 mmol/L (3.5-5.1)
[2024-10-26 18:27] LABS: ALBUMIN 3.5 g/dl (3.4-5.0); BLOOD UREA NITROGEN 15.2 mg/dL (7-18); N-TERMINAL BNP 2111.8 pg/ml (5-125)
[2024-10-26 18:31] LABS: CREATININE 0.8 mg/dL (0.55-1.3); TOT PROT 7.7 g/dl (6.4-8.2)
[2024-10-26] MEDS: OSELTAMIVIR PHOSPHATE 75 MG CAPSULE PO ONE (18:33)
[2024-10-26] MEDS: LACTATED RINGERS SOLUTION 1000 ML INFUS.BAG IV ONE (18:33)
[2024-10-26] MEDS: ACETAMINOPHEN 1000 MG/100 ML BAG IVPB ONE (18:33)
[2024-10-26 18:38] LABS: BILIRUBIN,TOTAL 0.3 mg/dL (0.2-1)
[2024-10-26] MEDS ORDERED: ALBUTEROL SULFATE 0.021% (0.63 MG/3 ML) VIAL.NEB NEB PRN (19:57)
[2024-10-26] MEDS ORDERED: FUROSEMIDE 40 MG TABLET (FP) ONE (21:42)
[2024-10-26] MEDS: FUROSEMIDE 40 MG/4 ML INJECTABLE VIAL IVPUSH ONE (21:46)
[2024-10-26] MEDS: ATORVASTATIN CA 80 MG TABLET (FP) PO SCH (21:58)
[2024-10-26] MEDS ORDERED: FUROSEMIDE 40 MG/4 ML INJECTABLE VIAL IVPUSH SCH (22:00)
[2024-10-26 22:42] LABS: ARTERIAL BLD GAS O2 SATURATION 96.7 % (95-98); ARTERIAL BLOOD GAS BASE EXCESS -1.1 mmol/L (-2-2); ARTERIAL BLOOD GAS PO2 85.3 mmHg (80-100); ARTERIAL BLOOD GAS pH 7.424 (7.350-7.450)
[2024-10-26 22:45] LABS: ALLENS TEST POSITIVE
[2024-10-26 22:46] LABS: VENT MODE S/T; VENT RATE 12
[2024-10-26 23:17] LABS: EPI CELLS 8 /uL (0-25.1); HYALINE CASTS 0 /uL (0-3.1); PH,URINE 5.5 (5.0-8.0); URINE APPEARANCE CLEAR; URINE BACTERIA 33 /uL (0-1359); URINE BILIRUBIN NEGATIVE (NEGATIVE); URINE COLOR YELLOW; URINE GLUCOSE (UA) NEGATIVE (NEGATIVE); URINE KETONE 1+ (NEGATIVE); URINE LEUK ESTERASE NEGATIVE (NEGATIVE); URINE NITRITE NEGATIVE (NEGATIVE); URINE PROTEIN 1+ (NEGATIVE); URINE RBC 31 /uL (0-23.9); URINE UROBILINOGEN 0.2 mg/dL (0.2-1.0); URINE WBC 10 /uL (0-25.8)
[2024-10-27] MEDS: AZITHROMYCIN IVPB 500 MG/250 ML BAG IVPB ONE (00:26)
[2024-10-27] MEDS: ALBUTEROL SO4 2.5/IPRATROPIUM 0.5 INH SOL 3 ML VIAL.NEB. NEB SCH (00:35)
[2024-10-27] MEDS: MAGNESIUM SULFATE IN WATER 2 GM/50 ML IVPB IVPB ONE (01:05)
[2024-10-27] MEDS: methylPREDNISolone NA SUCC 40 MG/1 ML VIAL IVPUSH SCH (01:05)
[2024-10-27 02:31] VITALS: BMI 24.9
[2024-10-27 04:06] LABS: OPIATES, URI NEGATIVE (NEGATIVE)
[2024-10-27 04:07] LABS: PHENCYCLIDINE,URINE NEGATIVE (NEGATIVE); URINE BENZODIAZEPINES NEGATIVE (NEGATIVE)
[2024-10-27 04:08] LABS: METHADONE, UR NEGATIVE (NEGATIVE)
[2024-10-27 04:20] LABS: COCAINE, UR NEGATIVE (NEGATIVE); URINE AMPHETAMINES NEGATIVE (NEGATIVE); URINE BARBITURATES NEGATIVE (NEGATIVE)
[2024-10-27 08:12] LABS: POTASSIUM 3.2 mmol/L (3.5-5.1)
[2024-10-27 08:13] LABS: HEMATOCRIT 35.8 % (32.4-45.2); HEMOGLOBIN 11.7 GM/dL (10.7-15.3); MCH 28.8 pg (25.7-33.7); MCHC 32.7 g/dl (32.0-36.0); MEAN PLT VOLUME 9.4 fl (7.5-11.1); PLATELET COUNT 235 10^3/uL (134-434); RBC 4.06 M/mm3 (3.60-5.2); RDW 14.6 % (11.6-15.6); WHITE BLOOD COUNT 14.4 K/mm3 (4.0-10.0)
[2024-10-27 08:23] LABS: CALCIUM 8.8 mg/dL (8.5-10.1)
[2024-10-27 08:24] LABS: BLOOD UREA NITROGEN 15.2 mg/dL (7-18); MAGNESIUM 2.2 mg/dL (1.8-2.4)
[2024-10-27 08:26] LABS: CREATININE 0.7 mg/dL (0.55-1.3)
[2024-10-27] MEDS: CLOPIDOGREL BISULFATE 75 MG TABLET (FP) PO SCH (09:13)
[2024-10-27] MEDS: LOSARTAN POTASSIUM 50 MG TABLET PO SCH (09:13)
[2024-10-27] MEDS: ASPIRIN COATED 81 MG TABLET.EC PO SCH (09:13)
[2024-10-27] MEDS: CARVEDILOL 25 MG TABLET (FP) PO SCH (09:13)
[2024-10-27] MEDS: FUROSEMIDE 40 MG/4 ML INJECTABLE VIAL IVPUSH SCH (09:13)
[2024-10-27] MEDS: AZITHROMYCIN IVPB 500 MG/250 ML BAG IVPB SCH (09:14)
[2024-10-27] MEDS: ENOXAPARIN NA (PORCINE) 40 MG/0.4 ML DISP.SYRIN SQ SCH (09:14)
[2024-10-27] MEDS: CEFTRIAXONE 1 G/50 ML PREMIX 50 ML IVPB SCH (09:14)
[2024-10-27] MEDS: OSELTAMIVIR PHOSPHATE 75 MG CAPSULE PO SCH (09:14)
[2024-10-27 09:30] LABS: ANISOCYTOSIS 0; MACROCYTOSIS 0
[2024-10-27] MEDS ORDERED: OSELTAMIVIR PHOSPHATE 75 MG CAPSULE PO SCH (10:00)
[2024-10-27] MEDS: POTASSIUM CHLORIDE TABS 20 MEQ TABLET.ER (FP) PO ONE (11:47)
[2024-10-27] MEDS: POLYETHYLENE GLYCOL (HEALTHYLAX) 3350 17 GM PACKET PO SCH (11:48)
[2024-10-27] MEDS: NICOTINE 21 MG/24 HOURS TOPICAL PATCH TD SCH (13:56)
[2024-10-27] MEDS: BUDESONIDE/FORMETEROL FUMARATE 160/4.5 mcg INHALER IH SCH (13:57)
[2024-10-28 07:41] LABS: HEMATOCRIT 37.9 % (32.4-45.2); MCH 29.7 pg (25.7-33.7); MCHC 34.3 g/dl (32.0-36.0); MEAN CELL VOLUME 86.6 fl (80-96); MEAN PLT VOLUME 9.6 fl (7.5-11.1); PLATELET COUNT 253 10^3/uL (134-434); RBC 4.38 M/mm3 (3.60-5.2); RDW 15.1 % (11.6-15.6); WHITE BLOOD COUNT 14.5 K/mm3 (4.0-10.0)
[2024-10-28 08:02] LABS: POTASSIUM 3.4 mmol/L (3.5-5.1)
[2024-10-28 08:14] LABS: BLOOD UREA NITROGEN 21.7 mg/dL (7-18)
[2024-10-28 08:16] LABS: CALCIUM 9.1 mg/dL (8.5-10.1)
[2024-10-28 08:17] LABS: CREATININE 0.8 mg/dL (0.55-1.3)
[2024-10-28] MEDS ORDERED: OSELTAMIVIR PHOSPHATE 75 MG CAPSULE PO SCH (11:29)
[2024-10-28] MEDS: HYDROCORTISONE 2.5% TOPICAL CREAM 30 GM TUBE RC SCH (12:02)
[2024-10-28] MEDS: POTASSIUM CHLORIDE TABS 20 MEQ TABLET.ER (FP) PO ONE (12:04)
[2024-10-28] MEDS: INSULIN ASPART SLIDING SCALE (NOVOLOG) 1 VIAL SQ SCH (18:06)
[2024-10-28] MEDS: CARVEDILOL 25 MG TABLET (FP) PO SCH (21:41)
[2024-10-28] MEDS: OSELTAMIVIR PHOSPHATE 75 MG CAPSULE PO SCH (21:41)
[2024-10-29 06:57] LABS: BASO % 0.2 % (0-2.0); EOS % 0.1 % (0-4.5); HEMATOCRIT 36.7 % (32.4-45.2); HEMOGLOBIN 12.1 GM/dL (10.7-15.3); LYMPH % 6.3 % (8-40); MCH 28.8 pg (25.7-33.7); MCHC 32.8 g/dl (32.0-36.0); MEAN CELL VOLUME 87.6 fl (80-96); MEAN PLT VOLUME 9.5 fl (7.5-11.1); MONO % 4.4 % (3.8-10.2); PLATELET COUNT 234 10^3/uL (134-434); RBC 4.19 M/mm3 (3.60-5.2); RDW 14.9 % (11.6-15.6); WHITE BLOOD COUNT 13.4 K/mm3 (4.0-10.0)
[2024-10-29 07:18] LABS: POTASSIUM 3.2 mmol/L (3.5-5.1)
[2024-10-29 07:22] LABS: MAGNESIUM 2.2 mg/dL (1.8-2.4)
[2024-10-29 07:25] LABS: CREATININE 0.7 mg/dL (0.55-1.3)
[2024-10-29 07:26] LABS: PHOSPHOROUS 2.6 mg/dL (2.5-4.9)
[2024-10-29] MEDS: POTASSIUM CHLORIDE TABS 20 MEQ TABLET.ER (FP) PO ONE (09:48)
[2024-10-29] MEDS: AZITHROMYCIN IVPB 500 MG/250 ML BAG IVPB SCH (12:08)
[2024-10-29] MEDS: methylPREDNISolone NA SUCC 40 MG/1 ML VIAL IVPUSH SCH (21:24)
[2024-10-30 06:32] VITALS: RESP 20
[2024-10-30 06:39] LABS: BASO % 0.2 % (0-2.0); HEMATOCRIT 35.3 % (32.4-45.2); HEMOGLOBIN 11.6 GM/dL (10.7-15.3); LYMPH % 7.5 % (8-40); MCH 29.1 pg (25.7-33.7); MCHC 32.8 g/dl (32.0-36.0); MEAN CELL VOLUME 88.8 fl (80-96); MEAN PLT VOLUME 9.8 fl (7.5-11.1); MONO % 4.9 % (3.8-10.2); NEUT % 87.4 % (42.8-82.8); PLATELET COUNT 228 10^3/uL (134-434); RBC 3.97 M/mm3 (3.60-5.2); RDW 14.4 % (11.6-15.6); WHITE BLOOD COUNT 11.9 K/mm3 (4.0-10.0)
[2024-10-30 06:48] LABS: POTASSIUM 3.4 mmol/L (3.5-5.1)
[2024-10-30 06:52] LABS: BLOOD UREA NITROGEN 17.7 mg/dL (7-18); CALCIUM 8.8 mg/dL (8.5-10.1)
[2024-10-30 06:55] LABS: CREATININE 0.7 mg/dL (0.55-1.3)
[2024-10-30 06:56] LABS: PHOSPHOROUS 2.8 mg/dL (2.5-4.9)
[2024-10-30 09:05] VITALS: PULSE 58; TEMP 98.1
[2024-10-30] MEDS: POTASSIUM CHLORIDE TABS 20 MEQ TABLET.ER (FP) PO ONE (10:01)
[2024-10-30 13:18] VITALS: BP 153/95
[2024-10-31] MEDS ORDERED: predniSONE 20 MG TABLET (UD) PO SCH (10:00)
== END 2024-10-30 18:08 | disposition home or self-care (01) | DRG 193 ==
LOC: JER 16:19 → JERBED 19:00 → J2W 23:30
PROVIDERS: ADMIT Internal Medicine; ATTEND Internal Medicine
DX: J09.X1 Influenza due to identified novel influenza A virus with pneumonia (principal); J96.01 Acute respiratory failure with hypoxia; J44.1 Chronic obstructive pulmonary disease with (acute) exacerbation; J45.901 Unspecified asthma with (acute) exacerbation; J44.0 Chronic obstructive pulmonary disease with (acute) lower respiratory infection; M06.9 Rheumatoid arthritis, unspecified; E11.51 Type 2 diabetes mellitus with diabetic peripheral angiopathy without gangrene; I11.0 Hypertensive heart disease with heart failure; E11.40 Type 2 diabetes mellitus with diabetic neuropathy, unspecified; F10.10 Alcohol abuse, uncomplicated; E78.5 Hyperlipidemia, unspecified; F17.210 Nicotine dependence, cigarettes, uncomplicated
CPT/HCPCS: 0241U-QW; 36415; 36600; 71045-TC-FY; 71250-TC; 80048; 80053; 80061; 80307; 81003; 82550; 82553; 82803; 82962; 83036; 83735; 83880; 84100; 84484; 85025; 85027; 85610; 85730; 86850; 86900; 86901; 87086; 87899; 93005; 93010; 93306-TC; 94640; 94660; 97116-GP; 97162-GP; 99285-25; J0131